=== PATIENT | male | born 1950 | race Caucasian/White ===

== ENCOUNTER → 2016-06-23 | Outpatient (CLI) | payer MEDICARE, OTHER ==
[~2016-06-23] MED LIST: ENAL20TA70 OR; TRIAMT/HCTZ PO; VANCOMYCIN 1GM/250ML D5W 250 ML IV ONE; cefTRIAXone 1GM/50ML D5W 50 ML IV ONE; cefTRIAXone 1GM/50ML D5W 50 ML IV SCH
[2016-06-23 13:00] VITALS: BP 140/78
== END | disposition home or self-care (01) ==
LOC: CHF HDHVI 12:36
PROVIDERS: ATTEND Internal Medicine Cardiovascular Disease
DX: T25.321A Burn of third degree of right foot, initial encounter (principal); B96.89 Other specified bacterial agents as the cause of diseases classified elsewhere; I10 Essential (primary) hypertension; X08.8XXA Exposure to other specified smoke, fire and flames, initial encounter; Y93.89 Activity, other specified; Y92.89 Other specified places as the place of occurrence of the external cause; Y99.8 Other external cause status
CPT/HCPCS: 96374; 96375; G0463; J0696; J3370; 96365

== ENCOUNTER → 2016-06-29 | Outpatient (CLI) | payer MEDICARE, OTHER ==
[~2016-06-29] MED LIST changes: -VANCOMYCIN 1GM/250ML D5W 250 ML IV ONE; -cefTRIAXone 1GM/50ML D5W 50 ML IV ONE; -cefTRIAXone 1GM/50ML D5W 50 ML IV SCH
== END | disposition home or self-care (01) ==
LOC: Rad HDHVI 10:57
PROVIDERS: ATTEND Internal Medicine Cardiovascular Disease
DX: M25.571 Pain in right ankle and joints of right foot (principal); I25.10 Atherosclerotic heart disease of native coronary artery without angina pectoris; I10 Essential (primary) hypertension
CPT/HCPCS: 93926

== ENCOUNTER → 2016-12-17 | Outpatient (CLI) | payer MEDICARE, OTHER ==
[~2016-12-17] MED LIST changes: +IOHEXOL 350 MG/ML 100ML IJ ONE
[2016-12-17 11:40] VITALS: BP 114/79
[2016-12-17 12:20] VITALS: BP 128/77
== END | disposition home or self-care (01) ==
LOC: Rad HDHVI 11:34
PROVIDERS: ATTEND Internal Medicine Cardiovascular Disease
DX: J98.11 Atelectasis (principal); K80.20 Calculus of gallbladder without cholecystitis without obstruction; I70.0 Atherosclerosis of aorta; M47.899 Other spondylosis, site unspecified; J44.9 Chronic obstructive pulmonary disease, unspecified
CPT/HCPCS: 71260; 82565; 96374; G0463; Q9967

== ENCOUNTER → 2018-02-03 | Outpatient (CLI) | payer MEDICARE, OTHER ==
[2018-02-03 12:22] VITALS: BP 115/90
[2018-02-03 13:32] VITALS: BP 148/107
--- NOTE | 2018-02-03 13:32 | NUR ---
CTA CHEST FOR SOB. IV TO RIGHT FOREARM. TOLERATED CT SCAN WELL. IV HYDRATION POST CT SCAN . TOLERATED WELL. IN ATTENDANCE. IV SITE DCD POST CT SCAN. SITE BENIGN. 0.9NS 300 ML X 1 HOUR Discharge Instructions See e-MAR for any mediations given with this visit. Patient education given on disease process. Patient verbalized understanding. Previous labs reviewed. Patient discharged in stable condition with after care instructions and follow up appointment.
[2018-02-03 16:33] LABS: Potassium 4.3 mmol/L (3.5-5.1)
[2018-02-03 16:35] LABS: BUN/Creatinine Ratio 13.1
== END | disposition home or self-care (01) ==
LOC: Rad HDHVI 12:13
PROVIDERS: ATTEND Internal Medicine Cardiovascular Disease
DX: J18.9 Pneumonia, unspecified organism (principal); I13.0 Hypertensive heart and chronic kidney disease with heart failure and stage 1 through stage 4 chronic kidney disease, or unspecified chronic kidney disease; I50.23 Acute on chronic systolic (congestive) heart failure; I50.32 Chronic diastolic (congestive) heart failure; E11.22 Type 2 diabetes mellitus with diabetic chronic kidney disease; N18.9 Chronic kidney disease, unspecified; I25.10 Atherosclerotic heart disease of native coronary artery without angina pectoris; J44.9 Chronic obstructive pulmonary disease, unspecified; I48.0 Paroxysmal atrial fibrillation; I71.9 Aortic aneurysm of unspecified site, without rupture; E78.00 Pure hypercholesterolemia, unspecified; E78.5 Hyperlipidemia, unspecified; I70.0 Atherosclerosis of aorta; J81.1 Chronic pulmonary edema; E66.01 Morbid (severe) obesity due to excess calories; D64.9 Anemia, unspecified; Z87.891 Personal history of nicotine dependence
CPT/HCPCS: 36415; 71260; 80048; 82565; 83880; 96360; G0463; J7040; Q9967

== ENCOUNTER → 2018-02-08 | Outpatient (CLI) | payer MEDICARE, OTHER ==
[~2018-02-08] MED LIST changes: +FUROSEMIDE 100 MG/10ML VIAL IV ONE; +FUROSEMIDE 40 MG/4 ML VIAL ONE; -IOHEXOL 350 MG/ML 100ML IJ ONE; +POTASSIUM CHL 10 Meq TABLET PO ONE; +POTASSIUM CHL 20 Meq TABLET PO ONE
[2018-02-08 09:00] VITALS: BP 141/93
--- NOTE | 2018-02-08 09:00 | NUR ---
CHF PT TO CHF CLINIC FOR MD LUJAN ORDERED IVP LASIX 80MG , POTASSIUM CHLORIDE 30MEQ PO. FOR CHF MANAGEMENT.
[2018-02-08 09:40] VITALS: BP 123/93
--- NOTE | 2018-02-08 09:40 | NUR ---
CHF Discharge Instructions See e-MAR for any mediations given with this visit. Patient education given on disease process. Patient verbalized understanding. Previous labs reviewed. Patient discharged in stable condition with after care instructions and follow up appointment. FOLLOW UP TOMORROW.
[2018-02-08 12:19] LABS: Potassium 4.1 mmol/L (3.5-5.1)
[2018-02-08 12:27] LABS: Calcium 8.3 mg/dL (8.5-10.1)
== END | disposition home or self-care (01) ==
LOC: Rad HDHVI 08:13
PROVIDERS: ATTEND Internal Medicine Cardiovascular Disease
DX: I11.0 Hypertensive heart disease with heart failure (principal); I50.42 Chronic combined systolic (congestive) and diastolic (congestive) heart failure; I70.0 Atherosclerosis of aorta; I25.10 Atherosclerotic heart disease of native coronary artery without angina pectoris; J44.9 Chronic obstructive pulmonary disease, unspecified; E78.5 Hyperlipidemia, unspecified; I48.0 Paroxysmal atrial fibrillation; E11.9 Type 2 diabetes mellitus without complications; E78.00 Pure hypercholesterolemia, unspecified; E66.01 Morbid (severe) obesity due to excess calories; Z68.32 Body mass index [BMI] 32.0-32.9, adult; Z87.891 Personal history of nicotine dependence
CPT/HCPCS: 36415; 71046; 80048; 83880; 93306; 96374; G0463; J1940

== ENCOUNTER → 2018-02-09 | Outpatient (CLI) | payer MEDICARE, OTHER ==
[~2018-02-09] MED LIST changes: +ATOR10TA PO; +ENAL5TAB PO; +ESOM40CA39 PO; +FLUT250M2 INH; +FOLI1TAB6 PO; +FURO20TA PO; -FUROSEMIDE 100 MG/10ML VIAL IV ONE; +FUROSEMIDE 40 MG/4 ML VIAL IV ONE; +GABA-339 PO; +LUBI24CA6 PO; +MAGNESIUM SULFATE 1GM/100ML 100 ML IV ONE; +METO-158 PO; +METO-281 PO; +METOPROLOL TARTRATE 25 MG TAB ONE; +METOPROLOL TARTRATE 50 MG TAB PO ONE; +POTA10TA51 PO; -POTASSIUM CHL 20 Meq TABLET PO ONE; +TEMA15CA91 PO; +TRAM50TA2 PO
--- NOTE | 2018-02-09 09:05 | NUR ---
CHF PT TO CHF CLINIC CLINIC FOR FOLLOW UP AFTER YESTERDAYS VISIT FOR IV PUSH LASIX 80MG IVP AND CHEST X RAY. DR. LUJAN CHAIRSIDE , RESULTED PT ON CHEST XRAY AND GAVE NEW ORDERS FOR TODAY. Clinic Provider Clinic Provider DR. LUJAN pt with new orders received and carried out. LASIX 40MG IVP, POTASSIUM CHLORIDE 10 MEQ PO. LAB REDRAW FOR BUN,CREAT, K,BNP. per MD order.
--- NOTE | 2018-02-09 10:04 | NUR ---
CHF LASIX 40MG IVP.
--- NOTE | 2018-02-09 10:21 | NUR ---
CHF POTASSIUM CHLORIDE 10 MEQ PO ADMINISTERED.
--- NOTE | 2018-02-09 12:00 | NUR ---
CHF DR. LUJAN ORDERED EKG DUE TO FLUCTUATING PULSE RATE. EKG SHOWED A FIB AND TACHYCARDIA, RBBB. MAG RIDER 1 GM ORDERED AND STARTED.
--- NOTE | 2018-02-09 12:09 | NUR ---
CHF CALL FROM DR. ANDERSON WHO ORDERED METOPROLOL 50MG PO. ADMINISTERED.
[2018-02-09 12:19] LABS: Potassium 4.2 mmol/L (3.5-5.1)
[2018-02-09 14:00] VITALS: BP 135/89
--- NOTE | 2018-02-09 14:00 | NUR ---
CHF PT TOLERATED THERAPY WELL. MAG HOLDER COMPLETE 1300. DR. ANDERSON GAVE NEW ORDERS DIGOXIN 0.125MCG 1 PO QD, #30. XERALTO 10MG 1 PO QD, #30 . METOPROLOL SUCCINATE 50MG 1 PO BID, #60. ALL REFILL X 3 , CALL INTO [facility]/ [address]. ORDERS CARRIED OUT. PT TO FOLLOW UP WITH DR. ANDERSON TOMORROW AT 1000, LAB REDRAW BUN, CREAT, K, BNP , STAT.PRIOR TO VISIT IN AM. IV removal IV DC'd with sterile technique, catheter fully intact. Pressure dressing applied to site. Patient tolerated procedure well. Discharged with aftercare instructions per MD. NOTE:
== END | disposition home or self-care (01) ==
LOC: CHF HDHVI 09:04
PROVIDERS: ATTEND Internal Medicine Cardiovascular Disease
DX: I13.0 Hypertensive heart and chronic kidney disease with heart failure and stage 1 through stage 4 chronic kidney disease, or unspecified chronic kidney disease (principal); E11.22 Type 2 diabetes mellitus with diabetic chronic kidney disease; I50.23 Acute on chronic systolic (congestive) heart failure; I50.32 Chronic diastolic (congestive) heart failure; N18.9 Chronic kidney disease, unspecified; I48.0 Paroxysmal atrial fibrillation; R94.4 Abnormal results of kidney function studies; R53.83 Other fatigue; E87.5 Hyperkalemia; D64.9 Anemia, unspecified; I25.10 Atherosclerotic heart disease of native coronary artery without angina pectoris; J44.9 Chronic obstructive pulmonary disease, unspecified; E78.5 Hyperlipidemia, unspecified; E66.01 Morbid (severe) obesity due to excess calories; E78.00 Pure hypercholesterolemia, unspecified; I07.1 Rheumatic tricuspid insufficiency; Z87.891 Personal history of nicotine dependence
CPT/HCPCS: 36415; 82565; 83880; 84132; 84484; 84520; 93005; 96365; 96375; G0463; J1940; J3475

== ENCOUNTER → 2018-02-10 | Outpatient (CLI) | payer MEDICARE, OTHER ==
[~2018-02-10] MED LIST changes: -MAGNESIUM SULFATE 1GM/100ML 100 ML IV ONE; +METOPROLOL SUCCINATE XL 50 MG TAB PO ONE; -METOPROLOL TARTRATE 25 MG TAB ONE; -METOPROLOL TARTRATE 50 MG TAB PO ONE; -POTASSIUM CHL 10 Meq TABLET PO ONE; +POTASSIUM CHL 20 Meq TABLET PO ONE; +SODIUM CHLORIDE 0.9% 250 ML IV ONE
--- NOTE | 2018-02-10 10:10 | NUR ---
PT. TO CHF CLINIC WITH SPOUSE, FOR EVAL. AND TX. APPARENTLY NEW RX FOR TOPROL XL 50MG WAS NOT FILLED YESTERDAY WITH OTHER NEW RX. CALL TO [facility] FOR EXPLANATION. PT. HAS NOT TAKEN ANY METOPROLOL SINCE YESTERDAY DOSE IN CLINIC. WT. DOWN 10+ LBS. IN 2 DAYS. EKG ORDERED. PT BROUGHT ALL MEDS FOR MED REC.
--- NOTE | 2018-02-10 10:37 | NUR ---
IV insertion IV access obtained, via clean sterile technique by inserting 22 gauge catheter at after attempt(s). IV secured properly. No trauma to site. Patient tolerated procedure well.LABS SENT PER MD ORDER.
--- NOTE | 2018-02-10 11:10 | NUR ---
EKG DONE SHOWING A-FIB WITH RVR. PT TOOK HIS INITIAL DOSE OF DIGOXIN YESTERDAY AT 5PM. CALL TO HOSP. PHARM. FOR TOPROL XL PER MD ORDER.
--- NOTE | 2018-02-10 11:35 | NUR ---
MEDS: PT. MEDICATED WITH TOPROL XL 50MG PO PER MD ORDER.
[2018-02-10 11:38] LABS: Basophils # (auto) 0 uL; Eosinophils # (auto) 0.1 uL; Hemoglobin 13.9 g/dL (13.5-17.5); Lymphocytes # (auto) 1.7 uL; Mean Corpuscular Volume 92.3 fL (80.0-100.0); Monocytes # (auto) 0.3 uL; Monocytes % (auto) 4.2 % (0.0-12.0)
[2018-02-10 11:41] LABS: Basophils % (auto) 0.3 % (0.0-2.0); Eosinophils % (auto) 2.4 % (0.0-7.0); Hematocrit 42.6 % (41.0-53.0); Lymphocytes % (auto) 26.9 % (10.0-50.0); Mean Corpuscular Hemoglobin 30.2 pg (28.0-32.0); Mean Corpuscular Hgb Conc. 32.7 g/dL (32.0-36.0); Neutrophils # (auto) 4.1 uL; Neutrophils % (auto) 66.2 % (37.0-80.0); Platelet Count (auto) 29 10^3/uL (140-450); Red Blood Cells 4.62 10^6/uL (4.5-5.90); White Blood Cell 6.2 10^3/uL (4.4-10.8)
[2018-02-10 11:47] LABS: Potassium 4.1 mmol/L (3.5-5.1)
--- NOTE | 2018-02-10 11:50 | NUR ---
PT. TO DR. ANDERSON'S OFFICE WITH THIS RN AND SPOUSE FOR APPT. EKG REVIEWED BY MD WITH MED. HX REVIEWED WITH MD ON LAST DOSE OF METOPROLOL, AND ALSO YESTERDAYS RECTAL BLEEDING AFTER BM. XARELTO 10MG HAS NOT BEEN TAKEN WITH DISCUSSION WITH DAUGHTER, WHO IS SALES ENGAGEMENT MANAGER IN [place]. NEW ORDERS RECEIVED AND CARRIED OUT.
--- NOTE | 2018-02-10 12:40 | NUR ---
PT. BACK TO CLINIC. .9NS STARTED AT 250/HR X [address] PREP AND CRI.
--- NOTE | 2018-02-10 13:00 | NUR ---
PT. TO AND FROM CT VIA AMBULATION. TOLERATED PROCEDURE WELL. IV RESUMED.
--- NOTE | 2018-02-10 13:10 | NUR ---
MEDS: PT. MEDICATED WITH LASIX 40MG IVP.
--- NOTE | 2018-02-10 13:15 | NUR ---
MEDS: PT. MEDICATED WITH KDUR 20 MEQ PO PER ORDER.
--- NOTE | 2018-02-10 14:30 | NUR ---
IV removal IV DC'd with sterile technique, catheter fully intact. Pressure dressing applied to site. Patient tolerated procedure well. Discharged with aftercare instructions per MD. NOTE:
[2018-02-10 14:38] VITALS: BP 132/91
--- NOTE | 2018-02-10 14:38 | NUR ---
Discharge Instructions See e-MAR for any mediations given with this visit. Patient education given on disease process. Patient verbalized understanding. Previous labs reviewed. Patient discharged in stable condition with after care instructions and follow up appointment. PT. HAS APPT. FOR TUESDAY WITH DR. ANDERSON AT 11:20 FOR POSSIBLE ADMIT IF A_FIB NOT UNDER CONTROL. PT. GAVE THIS RN PERMISSION TO CALL HIS DAUGHTER FOR UPDATE . WRITTEN MED REC. AND RX, AND ACI GIVEN TO . NO C/O AT TIME OF DISCHARGE.
== END | disposition home or self-care (01) ==
LOC: CHF HDHVI 10:10
PROVIDERS: ATTEND Internal Medicine Cardiovascular Disease
DX: I13.0 Hypertensive heart and chronic kidney disease with heart failure and stage 1 through stage 4 chronic kidney disease, or unspecified chronic kidney disease (principal); E11.22 Type 2 diabetes mellitus with diabetic chronic kidney disease; I50.42 Chronic combined systolic (congestive) and diastolic (congestive) heart failure; N18.9 Chronic kidney disease, unspecified; D63.1 Anemia in chronic kidney disease; I48.0 Paroxysmal atrial fibrillation; R94.4 Abnormal results of kidney function studies; E87.6 Hypokalemia; G89.29 Other chronic pain; G47.30 Sleep apnea, unspecified; E03.9 Hypothyroidism, unspecified; I25.10 Atherosclerotic heart disease of native coronary artery without angina pectoris; J44.9 Chronic obstructive pulmonary disease, unspecified; E66.01 Morbid (severe) obesity due to excess calories; F91.9 Conduct disorder, unspecified; F10.20 Alcohol dependence, uncomplicated; E78.5 Hyperlipidemia, unspecified; E78.00 Pure hypercholesterolemia, unspecified; Z87.891 Personal history of nicotine dependence; Z79.899 Other long term (current) drug therapy; Z87.01 Personal history of pneumonia (recurrent); Z68.35 Body mass index [BMI] 35.0-35.9, adult
CPT/HCPCS: 36415; 71260; 74177; 82565; 83880; 84132; 84520; 85025; 93005; 96361; 96374; G0463; J1940; J7030; 96360; 96375

== ENCOUNTER → 2018-02-21 | Outpatient (CLI) | payer MEDICARE, OTHER ==
[~2018-02-21] MED LIST changes: -FUROSEMIDE 40 MG/4 ML VIAL IV ONE; -FUROSEMIDE 40 MG/4 ML VIAL ONE; +KETOROLAC TROMETH 60MG/2ML VIAL IM ONE; -METOPROLOL SUCCINATE XL 50 MG TAB PO ONE; -POTASSIUM CHL 20 Meq TABLET PO ONE; -SODIUM CHLORIDE 0.9% 250 ML IV ONE
--- NOTE | 2018-02-21 09:55 | NUR ---
CHF PT TO CHF CLINIC FOR MD ANDERSON ORDERED 300ML MVI AT 250ML/HR AND LAB DRAW CMP,MG,BNP. IV insertion IV access obtained, via clean sterile technique by inserting 22 gauge catheter at after attempt(s). IV secured properly. No trauma to site. Patient tolerated procedure well.
[2018-02-21 10:56] LABS: Basophils # (auto) 0 uL; Basophils % (auto) 0.3 % (0.0-2.0); Eosinophils # (auto) 0.1 uL; Lymphocytes # (auto) 1.6 uL; Monocytes # (auto) 0.4 uL
[2018-02-21 10:58] LABS: Eosinophils % (auto) 2.2 % (0.0-7.0); Hematocrit 43.9 % (41.0-53.0); Hemoglobin 14.3 g/dL (13.5-17.5); Lymphocytes % (auto) 25.4 % (10.0-50.0); Mean Corpuscular Hemoglobin 29.7 pg (28.0-32.0); Mean Corpuscular Hgb Conc. 32.6 g/dL (32.0-36.0); Mean Corpuscular Volume 91.1 fL (80.0-100.0); Monocytes % (auto) 6.5 % (0.0-12.0); Neutrophils # (auto) 4.2 uL; Neutrophils % (auto) 65.6 % (37.0-80.0); Platelet Count (auto) 25 10^3/uL (140-450); Red Blood Cells 4.82 10^6/uL (4.5-5.90); Red Cell Distribution Width 15.2 % (11.8-14.3); White Blood Cell 6.5 10^3/uL (4.4-10.8)
[2018-02-21 11:17] LABS: Albumin 3.3 g/dL (3.4-5.0); Calcium 8.3 mg/dL (8.5-10.1); Magnesium 2.2 mg/dL (1.6-2.6); Potassium 3.8 mmol/L (3.5-5.1)
[2018-02-21 11:19] LABS: Bilirubin, Total 0.7 mg/dL (0.2-1.0); Total Protein 6.6 g/dL (6.4-8.2)
--- NOTE | 2018-02-21 12:30 | NUR ---
CHF PAIN LOW AND MID BACK 07/24 . LAB RESULTS BACK CREATININE 1.40. MD SAID 30MG IM TORADOL FOR PAIN.
[2018-02-21 12:50] VITALS: BP 141/90
--- NOTE | 2018-02-21 12:50 | NUR ---
CHF IV WAS COMPLETED 1130. IV removal IV DC'd with sterile technique, catheter fully intact. Pressure dressing applied to site. Patient tolerated procedure well. Discharged with aftercare instructions per MD. NOTE: EKG TAKEN FOR A FIB. PT DENIES ANY PAIN RELIEF 20 MIN AFTER TORADOL 30MG IM R GLUTE. PT TO FOLLOW UP WITH DR. ANDERSON TOMORROW AT 1040.
== END | disposition home or self-care (01) ==
LOC: CHF HDHVI 11:28
PROVIDERS: ATTEND Internal Medicine Cardiovascular Disease
DX: I11.0 Hypertensive heart disease with heart failure (principal); I50.23 Acute on chronic systolic (congestive) heart failure; E83.40 Disorders of magnesium metabolism, unspecified; N39.0 Urinary tract infection, site not specified; D64.9 Anemia, unspecified; I48.91 Unspecified atrial fibrillation; Z79.899 Other long term (current) drug therapy
CPT/HCPCS: 36415; 80053; 80162; 82306; 83735; 83880; 85025; J1885

== ENCOUNTER → 2018-02-22 | Outpatient (CLI) | payer MEDICARE, OTHER ==
[~2018-02-22] MED LIST changes: -KETOROLAC TROMETH 60MG/2ML VIAL IM ONE
[2018-02-22 16:52] LABS: INR 0.96 (0.9-1.15); Partial Thromboplastin Time 25.7 sec (23.78-33.04); Prothrombin Time 10.3 sec (9.27-12.13)
== END | disposition home or self-care (01) ==
LOC: Rad HDHVI 12:02
PROVIDERS: ATTEND Internal Medicine Cardiovascular Disease
DX: Z01.812 Encounter for preprocedural laboratory examination (principal); R79.1 Abnormal coagulation profile; I51.7 Cardiomegaly; I70.0 Atherosclerosis of aorta; R60.9 Edema, unspecified
CPT/HCPCS: 36415; 71046; 85610; 85730

== ENCOUNTER → 2018-03-08 | Outpatient (CLI) | payer MEDICARE, OTHER ==
[~2018-03-08] MED LIST changes: -ENAL20TA70 OR; +FUROSEMIDE 100 MG/10ML VIAL IV ONE; +FUROSEMIDE 40 MG/4 ML VIAL ONE; +POTASSIUM CHL 10 Meq TABLET PO ONE; -TRIAMT/HCTZ PO
[2018-03-08 12:32] VITALS: BP 118/76
--- NOTE | 2018-03-08 12:32 | NUR ---
PATIENT SEEN BY DR ANDERSON, VERBAL ORDERS RECEIVED ENTERED.
--- NOTE | 2018-03-08 13:05 | NUR ---
PATIENT AND SPOUSE EDUCATED TO STOP TAKING ENALAPRIL DOCUMENTED BY DR ANDERSON, ORDER HIGHLIGHTED ON PAPERWORK FOR PATIENT AND PATIENT SPOUSE, BOTH VERBALIZED UNDERSTANDING.
[2018-03-08 13:09] VITALS: BP 100/76
--- NOTE | 2018-03-08 13:09 | NUR ---
CHF CLINIC Discharge Instructions See e-MAR for any mediations given with this visit. Patient education given on disease process. Patient verbalized understanding. Previous labs reviewed. Patient discharged in stable condition with after care instructions and follow up appointment. NOTE LASIX IVP ADMIN BY ELIZABETH ZHAO POTASSIUM ADMIN BY ELIZABETH ZHAO LABS DRAWN BY ELIZABETH ZHAO
[2018-03-08 16:31] LABS: Anion Gap 5 (5-15); Blood Urea Nitrogen 12 mg/dL (7-18); Calcium 8.7 mg/dL (8.5-10.1); Carbon Dioxide 29 mmol/L (21-32); Chloride 104 mmol/L (98-107); Glucose 118 mg/dL (74-106); Potassium 3.8 mmol/L (3.5-5.1); Sodium 138 mmol/L (136-145)
[2018-03-08 16:34] LABS: BUN/Creatinine Ratio 9.9; GFR African American > 60 mL/min; GFR Non-African American > 60 mL/min
== END | disposition home or self-care (01) ==
LOC: CHF HDHVI 12:24
PROVIDERS: ATTEND Internal Medicine Cardiovascular Disease
DX: I13.0 Hypertensive heart and chronic kidney disease with heart failure and stage 1 through stage 4 chronic kidney disease, or unspecified chronic kidney disease (principal); I50.42 Chronic combined systolic (congestive) and diastolic (congestive) heart failure; E11.22 Type 2 diabetes mellitus with diabetic chronic kidney disease; N18.9 Chronic kidney disease, unspecified; I25.10 Atherosclerotic heart disease of native coronary artery without angina pectoris; J44.9 Chronic obstructive pulmonary disease, unspecified; I70.0 Atherosclerosis of aorta; E03.9 Hypothyroidism, unspecified; I48.0 Paroxysmal atrial fibrillation; I42.0 Dilated cardiomyopathy; E78.00 Pure hypercholesterolemia, unspecified; E66.01 Morbid (severe) obesity due to excess calories; E78.5 Hyperlipidemia, unspecified; G47.30 Sleep apnea, unspecified; G89.29 Other chronic pain; F10.21 Alcohol dependence, in remission; Z79.899 Other long term (current) drug therapy; Z87.891 Personal history of nicotine dependence
CPT/HCPCS: 36415; 80048; 83880; 96374; G0463; J1940

== ENCOUNTER → 2018-03-10 | Outpatient (CLI) | payer MEDICARE, OTHER ==
[~2018-03-10] MED LIST changes: -FUROSEMIDE 100 MG/10ML VIAL IV ONE; -FUROSEMIDE 40 MG/4 ML VIAL ONE; -POTASSIUM CHL 10 Meq TABLET PO ONE
[2018-03-10 12:10] LABS: Basophils # (auto) 0 uL; Hemoglobin 14.6 g/dL (13.5-17.5); Lymphocytes # (auto) 3.1 uL; Platelet Count (auto) 29 10^3/uL (140-450); White Blood Cell 10.9 10^3/uL (4.4-10.8)
[2018-03-10 12:12] LABS: Basophils % (auto) 0.3 % (0.0-2.0); Eosinophils # (auto) 0.1 uL; Eosinophils % (auto) 1.3 % (0.0-7.0); Hematocrit 43.8 % (41.0-53.0); Lymphocytes % (auto) 28.1 % (10.0-50.0); Mean Corpuscular Hemoglobin 29.4 pg (28.0-32.0); Mean Corpuscular Hgb Conc. 33.3 g/dL (32.0-36.0); Mean Corpuscular Volume 88.3 fL (80.0-100.0); Monocytes # (auto) 0.6 uL; Monocytes % (auto) 5.6 % (0.0-12.0); Neutrophils % (auto) 64.7 % (37.0-80.0); Nucleated Red Blood Cells % 0.1 %; Red Blood Cells 4.96 10^6/uL (4.5-5.90); Red Cell Distribution Width 15.9 % (11.8-14.3)
[2018-03-10 12:22] LABS: Chloride 103 mmol/L (98-107); Potassium 3.4 mmol/L (3.5-5.1); Sodium 139 mmol/L (136-145)
[2018-03-10 12:34] LABS: Alanine Aminotransferase 22 U/L (16-61); Alkaline Phosphatase 74 U/L (45-117); Anion Gap 5 (5-15); Aspartate Aminotransferase 17 U/L (15-37); BUN/Creatinine Ratio 10.6; Bilirubin, Total 0.8 mg/dL (0.2-1.0); Blood Urea Nitrogen 15 mg/dL (7-18); Calcium 8.4 mg/dL (8.5-10.1); Carbon Dioxide 31 mmol/L (21-32); GFR Non-African American 53 mL/min; Glucose 108 mg/dL (74-106); Total Protein 6.4 g/dL (6.4-8.2)
[2018-03-10 12:36] LABS: GFR African American > 60 mL/min
== END | disposition home or self-care (01) ==
LOC: LAB 10:44
PROVIDERS: ATTEND Internal Medicine Cardiovascular Disease
DX: I48.91 Unspecified atrial fibrillation (principal); E03.9 Hypothyroidism, unspecified; D64.9 Anemia, unspecified
CPT/HCPCS: 36415; 80053; 84439; 84443; 85025

== ENCOUNTER → 2018-03-14 | Outpatient (CLI) | payer MEDICARE, OTHER ==
[2018-03-14 12:07] LABS: Basophils # (auto) 0 uL; Hematocrit 44.3 % (41.0-53.0); Lymphocytes % (auto) 25.3 % (10.0-50.0); Monocytes # (auto) 0.5 uL; Monocytes % (auto) 4.6 % (0.0-12.0)
[2018-03-14 12:10] LABS: Basophils % (auto) 0.2 % (0.0-2.0); Eosinophils # (auto) 0.3 uL; Eosinophils % (auto) 2.7 % (0.0-7.0); Hemoglobin 14.5 g/dL (13.5-17.5); Lymphocytes # (auto) 2.6 uL; Mean Corpuscular Hemoglobin 29.1 pg (28.0-32.0); Mean Corpuscular Hgb Conc. 32.8 g/dL (32.0-36.0); Mean Corpuscular Volume 88.8 fL (80.0-100.0); Neutrophils % (auto) 67.2 % (37.0-80.0); Nucleated Red Blood Cells % 0.1 %; Red Blood Cells 4.98 10^6/uL (4.5-5.90); Red Cell Distribution Width 15.9 % (11.8-14.3); White Blood Cell 10.4 10^3/uL (4.4-10.8)
[2018-03-14 12:36] LABS: Platelet Count (auto) 73 10^3/uL (140-450)
== END | disposition home or self-care (01) ==
LOC: LAB 10:40
PROVIDERS: ATTEND Internal Medicine Cardiovascular Disease
DX: D64.9 Anemia, unspecified (principal)
CPT/HCPCS: 36415; 85025

== ENCOUNTER → 2018-04-21 | Outpatient (CLI) | payer MEDICARE, OTHER ==
[2018-04-21 16:29] LABS: Albumin 3.1 g/dL (3.4-5.0); Calcium 8.6 mg/dL (8.5-10.1); Potassium 3.9 mmol/L (3.5-5.1)
[2018-04-21 16:32] LABS: Bilirubin, Total 0.5 mg/dL (0.2-1.0); Total Protein 6.8 g/dL (6.4-8.2)
== END | disposition home or self-care (01) ==
LOC: LAB 13:08
PROVIDERS: ATTEND Internal Medicine Cardiovascular Disease
DX: I11.0 Hypertensive heart disease with heart failure (principal); I50.23 Acute on chronic systolic (congestive) heart failure; J44.9 Chronic obstructive pulmonary disease, unspecified
CPT/HCPCS: 36415; 80053; 83880

== ENCOUNTER → 2018-04-28 | Outpatient (CLI) | payer MEDICARE, OTHER ==
[2018-04-28 16:13] LABS: BUN/Creatinine Ratio 9.4; Potassium 3.8 mmol/L (3.5-5.1)
== END | disposition home or self-care (01) ==
LOC: LAB 11:18
PROVIDERS: ATTEND Internal Medicine Cardiovascular Disease
DX: I48.91 Unspecified atrial fibrillation (principal); I11.0 Hypertensive heart disease with heart failure; I50.33 Acute on chronic diastolic (congestive) heart failure
CPT/HCPCS: 36415; 80048; 83880

== ENCOUNTER → 2018-05-03 | Outpatient (CLI) | payer MEDICARE, OTHER ==
[~2018-05-03] MED LIST changes: +FUROSEMIDE 100 MG/10ML VIAL IV ONE; +FUROSEMIDE INJECTION 10 ML ONE; +POTASSIUM CHL 20 Meq TABLET PO ONE
[2018-05-03 13:10] VITALS: BP 102/70
[2018-05-03 13:30] VITALS: BP 109/68
--- NOTE | 2018-05-03 13:30 | NUR ---
CHF CLINIC Discharge Instructions See e-MAR for any mediations given with this visit. Patient education given on disease process. Patient verbalized understanding. Previous labs reviewed. Patient discharged in stable condition with after care instructions and follow up appointment NEXT TUESDAY. NOTE LASIX IVP ADMIN BY ELIZABETH ZHAO POTASSIUM PO ADMIN BY ELIZABETH ZHAO
== END | disposition home or self-care (01) ==
LOC: LAB 11:15
PROVIDERS: ATTEND Internal Medicine Cardiovascular Disease
DX: I11.0 Hypertensive heart disease with heart failure (principal); I50.42 Chronic combined systolic (congestive) and diastolic (congestive) heart failure; R91.8 Other nonspecific abnormal finding of lung field; R70.0 Elevated erythrocyte sedimentation rate; J44.9 Chronic obstructive pulmonary disease, unspecified; I48.91 Unspecified atrial fibrillation
CPT/HCPCS: 86038; 86635; 87070; 87077; 87186; 87205; 96374; G0463; J1940

== ENCOUNTER → 2018-05-09 | Outpatient (CLI) | payer MEDICARE, OTHER ==
[~2018-05-09] MED LIST changes: +POTASSIUM CHL 10 Meq TABLET PO ONE
[2018-05-09 11:45] VITALS: BP 98/67
--- NOTE | 2018-05-09 11:45 | NUR ---
CHF PT ARRIVED AT THE CHF CLINIC FOR WEEKLY LASIX IVP , PT ALERT ORIENTED 0 DISTRESS, V/S OBTAINED
[2018-05-09 12:17] VITALS: BP 100/57
--- NOTE | 2018-05-09 12:17 | NUR ---
Discharge Instructions See e-MAR for any mediations given with this visit. Patient education given on disease process. Patient verbalized understanding. Previous labs reviewed. Patient discharged in stable condition with after care instructions and follow up appointment. MEDICATIONS LASIX 100MG IVP X 1 POTASSIUM 40 MEQ PO X 1
== END | disposition home or self-care (01) ==
LOC: CHF HDHVI 11:45
PROVIDERS: ATTEND Internal Medicine Cardiovascular Disease
DX: I11.0 Hypertensive heart disease with heart failure (principal); I50.42 Chronic combined systolic (congestive) and diastolic (congestive) heart failure; J44.9 Chronic obstructive pulmonary disease, unspecified; I48.91 Unspecified atrial fibrillation
CPT/HCPCS: 96374; G0463; J1940

== ENCOUNTER → 2018-05-17 | Outpatient (CLI) | payer MEDICARE, OTHER ==
[~2018-05-17] MED LIST changes: -FUROSEMIDE 100 MG/10ML VIAL IV ONE; -FUROSEMIDE INJECTION 10 ML ONE; -POTASSIUM CHL 10 Meq TABLET PO ONE; -POTASSIUM CHL 20 Meq TABLET PO ONE
[2018-05-17 16:17] LABS: Calcium 8.9 mg/dL (8.5-10.1); Potassium 3.8 mmol/L (3.5-5.1)
== END | disposition home or self-care (01) ==
LOC: LAB 11:27
PROVIDERS: ATTEND Internal Medicine Cardiovascular Disease
DX: I11.0 Hypertensive heart disease with heart failure (principal); I50.30 Unspecified diastolic (congestive) heart failure; J44.9 Chronic obstructive pulmonary disease, unspecified
CPT/HCPCS: 36415; 80048

== ENCOUNTER → 2018-06-01 | Outpatient (CLI) | payer MEDICARE, OTHER ==
[~2018-06-01] VITALS: Ht 30.5 cm; Wt 0.5 kg
[~2018-06-01] MED LIST changes: +FUROSEMIDE 40 MG/4 ML VIAL IV ONE; +FUROSEMIDE 40 MG/4 ML VIAL ONE; +POTASSIUM CHL 20 Meq TABLET PO ONE
[2018-06-01 09:37] VITALS: BP 141/90
[2018-06-01 10:10] VITALS: BP 134/84
--- NOTE | 2018-06-01 10:10 | NUR ---
IN TO CLINIC FOR CONCERNS OVER BRUISING RIGHT GROIN. PT REPORTS HAVING A HEART CATH AT [facility] 10 DAYS AGO. PT REPORTS THAT THE BRUISING IS 'BAD". UPON ASSESSMENT, NOTED TO HAVE DARK ECCHYMOTIC AREA ON PUBIC AREA EXTENDING TO RIGHT GROIN. COVERS AREA OF APPROXIMATE 2/3 SIZE OF PIECE OF PAPER( 8X 10). ALL TISSUES SOFT TO PALPATION. NO ERYTHEMA. REINFORCED THAT BRUISING IS NORMAL AND ECCHYMOSIS WILL TAKE A FEW MORE WEEKS TO RESOLVE. PT VERBALIZED UNDERSTANDING. HAS LEFT LEG SWELLING, LEFT >RIGHT. CLINIC PROVIDER CONSULTED AND ORDERS RECIEVED. MEDICATED PER ORDER. Discharge Instructions See e-MAR for any mediations given with this visit. Patient education given on disease process. Patient verbalized understanding. Previous labs reviewed. Patient discharged in stable condition with after care instructions. MEDICATION ADMINISTRATION LASIX 60 MG IVP AT 1000 POTASSIUM 20 MEQ PO AT 1005
== END | disposition home or self-care (01) ==
LOC: CHF HDHVI 09:50
PROVIDERS: ATTEND Internal Medicine Cardiovascular Disease
DX: I11.0 Hypertensive heart disease with heart failure (principal); I50.42 Chronic combined systolic (congestive) and diastolic (congestive) heart failure; J44.9 Chronic obstructive pulmonary disease, unspecified; I48.91 Unspecified atrial fibrillation; M79.81 Nontraumatic hematoma of soft tissue
CPT/HCPCS: 96374; G0463; J1940

== ENCOUNTER → 2018-07-24 | Outpatient (CLI) | payer MEDICARE, OTHER ==
[~2018-07-24] MED LIST changes: +FURO1TAB33 PO; -FURO20TA PO; -FUROSEMIDE 40 MG/4 ML VIAL IV ONE; -FUROSEMIDE 40 MG/4 ML VIAL ONE; -POTASSIUM CHL 20 Meq TABLET PO ONE
[2018-07-24 16:16] LABS: BUN/Creatinine Ratio 13.2; Calcium 9.6 mg/dL (8.5-10.1); Potassium 4.1 mmol/L (3.5-5.1)
[2018-07-24 16:18] LABS: Bilirubin, Total 0.7 mg/dL (0.2-1.0); Total Protein 7.9 g/dL (6.4-8.2)
[2018-07-24 16:51] LABS: Basophils # (auto) 0 uL; Eosinophils # (auto) 0.2 uL; Lymphocytes # (auto) 2.7 uL; Red Blood Cells 5.11 10^6/uL (4.5-5.90); White Blood Cell 8.1 10^3/uL (4.4-10.8)
[2018-07-24 16:53] LABS: Basophils % (auto) 0.2 % (0.0-2.0); Eosinophils % (auto) 3.1 % (0.0-7.0); Hemoglobin 14.7 g/dL (13.5-17.5); Lymphocytes % (auto) 33.8 % (10.0-50.0); Mean Corpuscular Hemoglobin 28.9 pg (28.0-32.0); Mean Corpuscular Hgb Conc. 32.7 g/dL (32.0-36.0); Mean Corpuscular Volume 88.1 fL (80.0-100.0); Monocytes # (auto) 0.4 uL; Monocytes % (auto) 5.5 % (0.0-12.0); Neutrophils # (auto) 4.7 uL; Neutrophils % (auto) 57.4 % (37.0-80.0); Nucleated Red Blood Cells % 0.4 %; Red Cell Distribution Width 14.9 % (11.8-14.3)
[2018-07-24 17:28] LABS: Platelet Count (auto) 14 10^3/uL (140-450)
== END | disposition home or self-care (01) ==
LOC: LAB 13:13
PROVIDERS: ATTEND Internal Medicine Cardiovascular Disease
DX: D64.9 Anemia, unspecified (principal); I10 Essential (primary) hypertension; Z79.899 Other long term (current) drug therapy
CPT/HCPCS: 36415; 80053; 83036; 85025

== ENCOUNTER → 2018-10-20 | Outpatient (CLI) | payer MEDICARE, OTHER ==
[2018-10-20 13:38] LABS: Eosinophils # (auto) 0.3 uL; Eosinophils % (auto) 3.5 % (0.0-7.0); Lymphocytes # (auto) 2.3 uL; Monocytes # (auto) 0.4 uL; Red Cell Distribution Width 15.7 % (11.8-14.3); White Blood Cell 7.9 10^3/uL (4.4-10.8)
[2018-10-20 13:39] LABS: Basophils # (auto) 0.1 uL; Hematocrit 42.7 % (41.0-53.0); Hemoglobin 14.4 g/dL (13.5-17.5); Lymphocytes % (auto) 29.3 % (10.0-50.0); Mean Corpuscular Hemoglobin 29.5 pg (28.0-32.0); Mean Corpuscular Hgb Conc. 33.6 g/dL (32.0-36.0); Mean Corpuscular Volume 87.9 fL (80.0-100.0); Monocytes % (auto) 5.2 % (0.0-12.0); Neutrophils # (auto) 4.8 uL; Nucleated Red Blood Cells % 0.2 %; Red Blood Cells 4.86 10^6/uL (4.5-5.90)
[2018-10-20 14:29] LABS: Platelet Count (auto) 90 10^3/uL (140-450)
== END | disposition home or self-care (01) ==
LOC: LAB 09:29
PROVIDERS: ATTEND Internal Medicine Cardiovascular Disease
DX: D64.9 Anemia, unspecified (principal); I11.0 Hypertensive heart disease with heart failure; I50.9 Heart failure, unspecified
CPT/HCPCS: 36415; 85025

== ENCOUNTER 2019-04-28 17:54 | Inpatient (IN) | payer MEDICARE, OTHER ==
[~2019-04-28] VITALS: Ht 182.9 cm; Wt 105.4 kg
[~2019-04-28 17:54] MED LIST changes: -ENAL5TAB PO; +ENAL5TAB10 PO
[2019-04-28 19:10] LABS: Basophils # (auto) 0 10 ^3/uL (0-0.2); Eosinophils # (auto) 0 10 ^3/uL (0-0.8); Hemoglobin 11.4 g/dL (13.5-17.5); Lymphocytes # (auto) 0.5 10 ^3/uL (0.4-5.4); Mean Corpuscular Hgb Conc. 34.1 g/dL (32.0-36.0); Monocytes # (auto) 0.3 10 ^3/uL (0-1.3); Neutrophils % (auto) 81.3 % (37.0-80.0)
[2019-04-28 19:12] LABS: Basophils % (auto) 0.2 % (0.0-2.0); Eosinophils % (auto) 0.4 % (0.0-7.0); Hematocrit 33.5 % (41.0-53.0); Lymphocytes % (auto) 11.7 % (10.0-50.0); Mean Corpuscular Hemoglobin 28.8 pg (28.0-32.0); Mean Corpuscular Volume 84.6 fL (80.0-100.0); Monocytes % (auto) 6.4 % (0.0-12.0); Neutrophils # (auto) 3.4 10 ^3/uL (1.6-8.6); Red Blood Cells 3.95 10^6/uL (4.5-5.90); White Blood Cell 4.2 10^3/uL (4.4-10.8)
[2019-04-28 19:32] LABS: Albumin 2.7 g/dL (3.4-5.0); Anion Gap 9 (5-15); Blood Urea Nitrogen 23 mg/dL (7-18); Carbon Dioxide 22 mmol/L (21-32); Chloride 105 mmol/L (98-107); Glucose 132 mg/dL (74-106); Potassium 3.4 mmol/L (3.5-5.1); Sodium 136 mmol/L (136-145)
[2019-04-28 19:39] LABS: Alanine Aminotransferase 108 U/L (16-61); Alkaline Phosphatase 145 U/L (45-117); Aspartate Aminotransferase 35 U/L (15-37); BUN/Creatinine Ratio 12.3; Bilirubin, Total 1.1 mg/dL (0.2-1.0); GFR African American 46 mL/min; GFR Non-African American 38 mL/min; Total Protein 6.2 g/dL (6.4-8.2)
[2019-04-28] MEDS ORDERED: levoFLOXacin 500MG 100 ML IV ONE (20:00)
[2019-04-28] MEDS ORDERED: SODIUM CHLORIDE 0.9% 1,000 ML IV ONE ×2 (20:00→22:15)
[2019-04-28] MEDS ORDERED: KETOROLAC TROMETH 15 mg/ml 1ML VL IV ONE (20:00)
[2019-04-28 20:12] LABS: Platelet Count (auto) 42 10^3/uL (140-450)
[2019-04-29] MEDS ORDERED: NITROGLYCERIN 0.4 MG SL TAB SL PRN (08:45)
[2019-04-29] MEDS ORDERED: ONDANSETRON HCL 4 MG/2 ML VIAL IV PRN (08:45)
[2019-04-29] MEDS ORDERED: SODIUM CHLORIDE 0.9% 1,000 ML IV SCH (08:45)
[2019-04-29] MEDS ORDERED: MORPHINE SULF INJ 2 MG/ML SYRINGE 1ML IV PRN ×2 (08:45)
[2019-04-29] MEDS ORDERED: DOCUSATE SOD 100 MG CAP PO PRN (08:45)
[2019-04-29] MEDS ORDERED: DEXTROSE (50%) 50ML SYRG IV PRN (08:45)
[2019-04-29] MEDS ORDERED: ACETAMINOPHEN 500 MG TAB PO PRN (08:45)
[2019-04-29 09:42] VITALS: BP 125/85
[2019-04-29] MEDS: levoFLOXacin 500MG 100 ML IV SCH (10:33)
[2019-04-29] MEDS: METOPROLOL SUCCINATE XL 50 MG TAB PO SCH (10:44)
[2019-04-29] MEDS: APIXABAN 5 MG TAB PO SCH ×2 (10:46→21:13)
[2019-04-29] MEDS: InsuLIN REG 1unit/0.01ml Soln (100units/ml) SC SCH ×3 (11:30→21:18)
[2019-04-29] MEDS: ACCU-CHEK COMFORT CURVE STRIP VI SCH ×3 (11:35→21:14)
[2019-04-29] MEDS: LEVALBUTEROL HCL 1.25 MG/3 ML NEB NEB SCH ×2 (11:43→19:51)
[2019-04-29] MEDS: IPRATROPIUM BROM 0.5 MG/2.5ML INH SOL NEB SCH ×2 (11:43→19:51)
[2019-04-29 14:50] VITALS: BP 125/76
--- NOTE | 2019-04-29 15:46 | NUR ---
MATT ANDERSON INFORMED OF PATIENT HAVING RUNS OF VTACH. AWAITING CALL BACK.
--- NOTE | 2019-04-29 15:57 | NUR ---
RECIEVED CALL BACK FROM [facility] REGARDING PATIENT HAVING RUNS OF VTACH. STATED TO DO "NOTHING".
[2019-04-29 16:45] VITALS: BP 135/71
--- NOTE | 2019-04-29 18:47 | NUR ---
REGARDING REDDISH STOOL AND FREQUENT V TACH EPISODES: MATT ANDERSON REGARDING PATIENTS FREQUENT EPISODES OF VENTRICULAR TACHYCARDIA AGAIN. ALSO PATIENT HAD AN EPISODE OF REDDISH COLORED STOOL. AWAITING CALL BACK.
[2019-04-29] MEDS ORDERED: FUROSEMIDE 40 MG/4 ML VIAL IV ONE (19:15)
--- NOTE | 2019-04-29 19:30 | NUR ---
OPENING NOTE REPORT RECEIVED FROM DAY SHIFT RN PATIENT IS A/OX4 RESTING IN BED, NO S/S OF DISTRESS AT THIS TIME. PHYSICAL ASSESSMENT DONE-SEE INTERVENTIONS. POC DISCUSSED WITH PATIENT AND ALL QUESTIONS ANSWERED. WILL MONITOR CLOSELY. CALL LIGHT WITHIN REACH.
--- NOTE | 2019-04-29 20:35 | NUR ---
RUNS OF VTACH PATIENT HAVING RUNS OF VTACH. PATIENT COMPLETELY ASYMPTOMATIC, VITALS STABLE. ALREADY AWARE WITH NO NEW ORDERS. WILL CONTINUE TO MONITOR
[2019-04-29] MEDS: HYDROcodone-ACET 5/325MG TAB PO PRN (21:14)
--- NOTE | 2019-04-29 21:14 | NUR ---
PAIN PATIENT C/O 6/10 PAIN TO HIS FEET PATIENT MEDICATED WITH NORCO WILL REASSESS IN ONE HOUR
[2019-04-29 21:33] LABS: Urine WBC None Seen /hpf (0 - 3)
[2019-04-29 21:38] LABS: Urine Bacteria FEW /hpf (None Seen); Urine Blood Negative /uL (Negative); Urine Specific Gravity 1.005 (1.001-1.035)
[2019-04-29 22:00] VITALS: BP 124/73
--- NOTE | 2019-04-29 22:14 | NUR ---
PAIN REASSESSMENT PATIENT SLEEPING AT THIS TIME. NO SIGNS OF PAIN OR DISCOMFORT
[2019-04-30 05:00] VITALS: BP 150/90
--- NOTE | 2019-04-30 05:10 | NUR ---
PAGED RE: PATIENT HAVING MORE FREQUENT RUNS OF VTACH PATIENT STILL REMAINS ASYMPTOMATIC A/OX4, VITALS STABLE. WILL WAIT FOR MD TO CALL BACK
[2019-04-30] MEDS: InsuLIN REG 1unit/0.01ml Soln (100units/ml) SC SCH ×4 (06:00→23:14)
[2019-04-30] MEDS: ACCU-CHEK COMFORT CURVE STRIP VI SCH ×4 (06:01→23:14)
[2019-04-30] MEDS: IPRATROPIUM BROM 0.5 MG/2.5ML INH SOL NEB SCH ×3 (06:14→19:57)
[2019-04-30] MEDS: LEVALBUTEROL HCL 1.25 MG/3 ML NEB NEB SCH ×3 (06:14→19:57)
[2019-04-30 06:32] LABS: BUN/Creatinine Ratio 13.3; Potassium 3.1 mmol/L (3.5-5.1)
--- NOTE | 2019-04-30 07:13 | NUR ---
CLOSING PATIENT RESTING COMFORTABLY IN BED. NO S/S OF DISTRESS NO CALL BACK FROM . ENDORSED CARE TO DAYSLUCIO AVALOS
[2019-04-30 08:13] LABS: Basophils # (auto) 0 10 ^3/uL (0-0.2); Basophils % (auto) 0.5 % (0.0-2.0); Eosinophils # (auto) 0.1 10 ^3/uL (0-0.8); Eosinophils % (auto) 2.8 % (0.0-7.0); Hematocrit 32.3 % (41.0-53.0); Hemoglobin 10.9 g/dL (13.5-17.5); Lymphocytes # (auto) 0.7 10 ^3/uL (0.4-5.4); Lymphocytes % (auto) 31.1 % (10.0-50.0); Mean Corpuscular Hemoglobin 28.3 pg (28.0-32.0); Mean Corpuscular Hgb Conc. 33.8 g/dL (32.0-36.0); Mean Corpuscular Volume 83.7 fL (80.0-100.0); Monocytes # (auto) 0.3 10 ^3/uL (0-1.3); Monocytes % (auto) 11.7 % (0.0-12.0); Neutrophils # (auto) 1.3 10 ^3/uL (1.6-8.6); Neutrophils % (auto) 53.9 % (37.0-80.0); Nucleated Red Blood Cells % 0.2 %; Platelet Count (auto) 41 10^3/uL (140-450); Red Blood Cells 3.86 10^6/uL (4.5-5.90); Red Cell Distribution Width 15.5 % (11.8-14.3); White Blood Cell 2.4 10^3/uL (4.4-10.8)
[2019-04-30 09:00] VITALS: BP 133/77
[2019-04-30] MEDS: levoFLOXacin 500MG 100 ML IV SCH (09:23)
[2019-04-30] MEDS: APIXABAN 5 MG TAB PO SCH ×2 (09:24→23:03)
[2019-04-30] MEDS: HYDROcodone-ACET 5/325MG TAB PO PRN ×2 (09:24→23:03)
[2019-04-30] MEDS: METOPROLOL SUCCINATE XL 50 MG TAB PO SCH (09:24)
[2019-04-30] MEDS ORDERED: FUROSEMIDE 40 MG/4 ML VIAL IV SCH (10:00)
--- NOTE | 2019-04-30 10:00 | NUR ---
DR FRAGOSO AT BED SIDE DISCUSSING POC. PATIENT VERBALIZES UNDERSTANDING.
[2019-04-30] MEDS ORDERED: POTASSIUM CHL 20 Meq TABLET PO ONE (11:00)
[2019-04-30] MEDS ORDERED: FAMOTIDINE 20 MG TAB PO ONE (11:00)
[2019-04-30] MEDS ORDERED: FOLIC ACID 1 MG TAB PO ONE (11:00)
--- NOTE | 2019-04-30 11:57 | NUR ---
1200 MED NEB NOT ADMINISTERED. PT NOT IN ROOM AT PROCEDURE. RN BAILEY AWARE OF NON ADMINISTERED MED AND ALSO IF PT DEVELOPS RESPIRATORY DISTRESS TO CALL RT. WILL CONTINUE TO MONITOR.
[2019-04-30 13:00] VITALS: BP 129/86
[2019-04-30] MEDS: metroNIDAZOLE 500MG/100ML 100 ML IV SCH ×2 (14:00→23:03)
[2019-04-30 17:00] VITALS: BP 130/76
--- NOTE | 2019-04-30 19:44 | NUR ---
Opening Shift Note Assumed care of patient, awake and alert. No S/S of distress/SOB or pain. t 98.2 0/10 paim, 125/52 b/p, 84 heart rate, o2 saturation 95% via room air. Instructed patient and on POC and to call for assist PRN, will continue to monitor for changes Q1hr and PRN. bed in low position and call light within reach.
[2019-04-30 20:00] VITALS: BP 125/52
[2019-04-30 22:00] VITALS: BP 116/69
--- NOTE | 2019-04-30 23:03 | NUR ---
PAIN PATIENT REPORTS PAIN 5/10 TO BACK NON RADIATING. WILL MEDICATE PER PROTOCOL.
[2019-04-30] MEDS: METOPROLOL TARTRATE 50 MG TAB PO SCH (23:04)
--- NOTE | 2019-05-01 00:03 | NUR ---
PAIN REASSESSMENT PATIENT NOW RATES PAIN AT 3/10, STATES IT IS AT A TOLERABLE LEVEL
[2019-05-01 05:00] VITALS: BP 131/87
[2019-05-01] MEDS: LEVALBUTEROL HCL 1.25 MG/3 ML NEB NEB SCH ×3 (05:49→18:16)
[2019-05-01] MEDS: IPRATROPIUM BROM 0.5 MG/2.5ML INH SOL NEB SCH ×3 (05:49→18:16)
[2019-05-01 05:52] LABS: Basophils # (auto) 0 10 ^3/uL (0-0.2); Nucleated Red Blood Cells % 0.1 %
[2019-05-01] MEDS: metroNIDAZOLE 500MG/100ML 100 ML IV SCH ×3 (05:52→21:34)
[2019-05-01 05:56] LABS: Basophils % (auto) 0.4 % (0.0-2.0); Eosinophils # (auto) 0.1 10 ^3/uL (0-0.8); Eosinophils % (auto) 3.6 % (0.0-7.0); Hematocrit 34.9 % (41.0-53.0); Hemoglobin 11.6 g/dL (13.5-17.5); Lymphocytes # (auto) 1.5 10 ^3/uL (0.4-5.4); Lymphocytes % (auto) 36.1 % (10.0-50.0); Mean Corpuscular Hemoglobin 28.1 pg (28.0-32.0); Mean Corpuscular Hgb Conc. 33.3 g/dL (32.0-36.0); Mean Corpuscular Volume 84.3 fL (80.0-100.0); Monocytes # (auto) 0.5 10 ^3/uL (0-1.3); Neutrophils % (auto) 48.9 % (37.0-80.0); Red Blood Cells 4.14 10^6/uL (4.5-5.90); White Blood Cell 4.1 10^3/uL (4.4-10.8)
[2019-05-01 06:05] LABS: INR 1.03 (0.9-1.15); Partial Thromboplastin Time 30.7 sec (23.64-32.05)
[2019-05-01 06:15] LABS: Albumin 2.6 g/dL (3.4-5.0); Calcium 8.9 mg/dL (8.5-10.1); Potassium 3.4 mmol/L (3.5-5.1)
[2019-05-01 06:28] LABS: Bilirubin, Total 0.5 mg/dL (0.2-1.0); Total Protein 6.6 g/dL (6.4-8.2)
[2019-05-01] MEDS: InsuLIN REG 1unit/0.01ml Soln (100units/ml) SC SCH (06:32)
[2019-05-01] MEDS: ACCU-CHEK COMFORT CURVE STRIP VI SCH (06:32)
[2019-05-01 06:36] LABS: Platelet Count (auto) 44 10^3/uL (140-450)
--- NOTE | 2019-05-01 06:41 | NUR ---
patient rounds patient is in bed watching tv denies sob distress or pain
--- NOTE | 2019-05-01 07:15 | NUR ---
REPORT GIVEN TO DAYSHIFT RN. PATIENT DENIES SOB DISTRESS OR PAIN
[2019-05-01 07:19] LABS: BUN/Creatinine Ratio 14.1
--- NOTE | 2019-05-01 08:00 | NUR ---
OPENING SHIFT NOTE: PATIENT AWAKE A/OX4. C/O FOOT "BURNING" SENSATION, "COMES AND GOES." PATIENT ABLE TO MOVE ALL EXTREMITIES, WARM DRY, SKIN INTACT. RESPIRATIONS EVEN AND UNLABORED, LUNG SOUNDS CLEAR. UPDATED ON PLAN OF CARE. CALL LIGHT WITHIN REACH, WILL CONTINUE TO MONITOR.
[2019-05-01 08:53] VITALS: BP 141/89
[2019-05-01] MEDS: levoFLOXacin 500MG 100 ML IV SCH (09:58)
[2019-05-01] MEDS: FAMOTIDINE 20 MG TAB PO SCH (09:58)
[2019-05-01] MEDS: FOLIC ACID 1 MG TAB PO SCH (09:58)
[2019-05-01] MEDS: METOPROLOL TARTRATE 50 MG TAB PO SCH ×2 (09:58→21:36)
[2019-05-01] MEDS: APIXABAN 5 MG TAB PO SCH ×2 (09:58→21:35)
[2019-05-01] MEDS ORDERED: POTASSIUM CHL 20 Meq TABLET PO ONE (10:15)
--- NOTE | 2019-05-01 10:57 | NUR ---
MEDICATION REACTION: PATIENT REPORTING MEDICATION REACTION TO LEVAQUIN IVPB. PATIENT SWEATING AND SAYS, "THIS MEDICATION IS NOT RIGHT, MY ARMS THEY FEEL LIKE THEY ARE BURNING." DR. FRAGOSO MADE AWARE, LEVAQUIN DC'D AND BENADRYL GIVEN ORDERED.
[2019-05-01] MEDS ORDERED: diphenhdrAMINE HCL 50 MG/1 ML VL IV ONE (11:00)
[2019-05-01 12:12] VITALS: BP 135/67
--- NOTE | 2019-05-01 13:45 | NUR ---
PATIENT REFUSING FLAGYL: PATIENT REFUSING IV FLAGYL AT THIS TIME. PATIENT DENIES ANY SOB OR SWEATING AT THIS TIME, EXPRESSING CONCERN WITH ANTIBIOTICS, AND "DOES NOT WANT TO BE HOOKED UP TO THOSE MEDICATIONS MA'AM, PLEASE." FLAGYL HELD AT THIS TIME. MD MONICA PENNY MADE AWARE.
[2019-05-01 16:16] VITALS: BP 138/87
[2019-05-01] MEDS: traMADol HCL 50 MG TAB PO SCH ×2 (16:59→21:35)
--- NOTE | 2019-05-01 19:21 | NUR ---
CARE ENDORSED TO ANGELITA ZHAO.
--- NOTE | 2019-05-01 20:20 | NUR ---
PAIN PATIENT REQUESTING TYLENOL FOR PAIN RATED 8/10 TO LOWER EXTREMITIES. PATIENT REFUSING MORPHINE AND NORCO AT THIS TIME. TRAMADOL NOT DUE AT THIS TIME.
[2019-05-01 21:30] VITALS: BP 110/75
[2019-05-02 05:00] VITALS: BP 136/85
--- NOTE | 2019-05-02 06:49 | NUR ---
PATIENT RESTING WITH NO S/S OF DISTRESS NOTED.
[2019-05-02 07:07] LABS: Potassium 3.6 mmol/L (3.5-5.1)
[2019-05-02 07:11] LABS: Albumin 2.9 g/dL (3.4-5.0); Calcium 9.1 mg/dL (8.5-10.1)
[2019-05-02 07:14] LABS: Bilirubin, Total 0.5 mg/dL (0.2-1.0)
--- NOTE | 2019-05-02 07:47 | NUR ---
OPENING SHIFT NOTE: PATIENT ASLEEP, EASILY AWOKEN. A/OX4. RESPIRATIONS EVEN AND UNLABORED. CALL LIGHT WITHIN REACH. UPDATED ON PLAN OF CARE, PATIENT VERBALIZED UNDERSTANDING. WILL CONTINUE TO MONITOR.
[2019-05-02] MEDS: metroNIDAZOLE 500MG/100ML 100 ML IV SCH (07:48)
[2019-05-02] MEDS: IPRATROPIUM BROM 0.5 MG/2.5ML INH SOL NEB SCH (08:45)
[2019-05-02] MEDS: LEVALBUTEROL HCL 1.25 MG/3 ML NEB NEB SCH (08:45)
[2019-05-02 09:05] VITALS: BP 150/98
[2019-05-02] MEDS: traMADol HCL 50 MG TAB PO SCH (09:59)
[2019-05-02] MEDS: FAMOTIDINE 20 MG TAB PO SCH (09:59)
[2019-05-02] MEDS: FOLIC ACID 1 MG TAB PO SCH (09:59)
[2019-05-02] MEDS: APIXABAN 5 MG TAB PO SCH (09:59)
[2019-05-02] MEDS: METOPROLOL TARTRATE 50 MG TAB PO SCH (10:00)
[2019-05-02 10:56] VITALS: BP 150/98
--- NOTE | 2019-05-02 11:48 | NUR ---
DISCHARGE: PATIENT GIVEN ALL EDUCATION MATERIALS, EDUCATED ON FOLLOW UP APPOINTMENT AND INSTRUCTIONS, PATIENT VERBALIZED UNDERSTANDING. IV'S DISCONTINUED, MANUAL PRESSURE APPLIED. TELE RETURNED TO CARDIO UNIT. PATIENT TAKEN TO PRIVATE AUTO WITH ALL BELONGINGS, WITHOUT INCIDENCE.
== END 2019-05-02 11:45 | disposition home or self-care (01) | DRG 444 ==
LOC: ER 17:54 → EDBD 17:54 → TELE 17:55 → TELE-CENTR 04-29 14:26
PROVIDERS: ADMIT Nurse Practitioner Acute Care; ATTEND Internal Medicine
PROC: CF2YYZZ Tomographic (Tomo) Nuclear Medicine Imaging of Hepatobiliary System and Pancreas using Other Radionuclide (ICD-10-PCS; principal; 2019-04-30)
DX: K80.10 Calculus of gallbladder with chronic cholecystitis without obstruction (principal); J18.9 Pneumonia, unspecified organism; N17.0 Acute kidney failure with tubular necrosis; I49.01 Ventricular fibrillation; I48.20 Chronic atrial fibrillation, unspecified; D61.818 Other pancytopenia; I42.2 Other hypertrophic cardiomyopathy; I13.0 Hypertensive heart and chronic kidney disease with heart failure and stage 1 through stage 4 chronic kidney disease, or unspecified chronic kidney disease; I42.0 Dilated cardiomyopathy; J44.0 Chronic obstructive pulmonary disease with (acute) lower respiratory infection; I12.9 Hypertensive chronic kidney disease with stage 1 through stage 4 chronic kidney disease, or unspecified chronic kidney disease; N18.3 Chronic kidney disease, stage 3 (moderate); E87.6 Hypokalemia; E78.5 Hyperlipidemia, unspecified; E66.9 Obesity, unspecified; E11.22 Type 2 diabetes mellitus with diabetic chronic kidney disease; F17.210 Nicotine dependence, cigarettes, uncomplicated; I25.10 Atherosclerotic heart disease of native coronary artery without angina pectoris; S33.5XXA Sprain of ligaments of lumbar spine, initial encounter; X58.XXXA Exposure to other specified factors, initial encounter; Y93.89 Activity, other specified; Y92.89 Other specified places as the place of occurrence of the external cause; Z88.1 Allergy status to other antibiotic agents; Z95.810 Presence of automatic (implantable) cardiac defibrillator; Y99.8 Other external cause status; Z79.51 Long term (current) use of inhaled steroids; Z79.899 Other long term (current) drug therapy; Z68.31 Body mass index [BMI] 31.0-31.9, adult
CPT/HCPCS: 36415; 71045; 76705; 78226; 80048; 80053; 81001; 82962; 83036; 84484; 85025; 85610; 85730; 93005; 93926; 94640; G0378; J1815; J1956; J3490

== ENCOUNTER → 2019-05-08 | Outpatient (CLI) | payer MEDICARE, OTHER ==
[~2019-05-08] MED LIST changes: +ENAL5TAB PO; -ENAL5TAB10 PO
== END | disposition home or self-care (01) ==
LOC: Rad HDHVI 08:58
PROVIDERS: ATTEND Internal Medicine Cardiovascular Disease
DX: M79.669 Pain in unspecified lower leg (principal); I77.1 Stricture of artery
CPT/HCPCS: 93925

== ENCOUNTER → 2019-08-20 | Outpatient (CLI) | payer MEDICARE, OTHER ==
[~2019-08-20] VITALS: Ht 182.9 cm; Wt 99.8 kg
[~2019-08-20] MED LIST changes: -ENAL5TAB PO; +ENAL5TAB10 PO
[2019-08-20 10:00] VITALS: BP 93/68
--- NOTE | 2019-08-20 10:00 | NUR ---
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 A/OX4, AMBULATORY.
--- NOTE | 2019-08-20 10:14 | NUR ---
EKG DONE BY ALEX TORRES SR 69 WITH MULTIPLE PVC, R BBB
[2019-08-20 10:25] VITALS: BP 104/67
--- NOTE | 2019-08-20 10:25 | NUR ---
Pre-Op Discharge Summary: See e-MAR for any medications given for this visit. Pre-op orders received and carried out per MD of EKG, LABS. Patient given a copy of EKG with instructions to go to [facility] FOR CXR AND out patient for further follow up care. NOTE EKG DONE BY ALEX TORRES
[2019-08-20 11:57] LABS: Basophils # (auto) 0 10 ^3/uL (0-0.2); Basophils % (auto) 0.3 % (0.0-2.0); Mean Corpuscular Hemoglobin 26.8 pg (28.0-32.0); Mean Corpuscular Hgb Conc. 32.4 g/dL (32.0-36.0); Monocytes # (auto) 0.4 10 ^3/uL (0-1.3); Neutrophils # (auto) 4.8 10 ^3/uL (1.6-8.6); White Blood Cell 7.7 10^3/uL (4.4-10.8)
[2019-08-20 11:59] LABS: Eosinophils # (auto) 0.4 10 ^3/uL (0-0.8); Eosinophils % (auto) 4.9 % (0.0-7.0); Hematocrit 41.1 % (41.0-53.0); Hemoglobin 13.3 g/dL (13.5-17.5); Lymphocytes # (auto) 2.1 10 ^3/uL (0.4-5.4); Lymphocytes % (auto) 27.8 % (10.0-50.0); Mean Corpuscular Volume 82.8 fL (80.0-100.0); Monocytes % (auto) 5.1 % (0.0-12.0); Neutrophils % (auto) 61.9 % (37.0-80.0); Nucleated Red Blood Cells % 0.3 %; Red Blood Cells 4.96 10^6/uL (4.5-5.90); Red Cell Distribution Width 16.4 % (11.8-14.3)
[2019-08-20 12:02] LABS: BUN/Creatinine Ratio 12.7; Calcium 8.7 mg/dL (8.5-10.1)
[2019-08-20 12:06] LABS: INR 0.96 (0.9-1.15); Partial Thromboplastin Time 24.5 sec (23.64-32.05)
[2019-08-20 12:40] LABS: Platelet Count (auto) 86 10^3/uL (140-450)
== END | disposition home or self-care (01) ==
LOC: Rad HDHVI 09:50
PROVIDERS: ATTEND Internal Medicine Cardiovascular Disease
DX: Z01.812 Encounter for preprocedural laboratory examination (principal); I10 Essential (primary) hypertension; D64.9 Anemia, unspecified; R79.1 Abnormal coagulation profile
CPT/HCPCS: 36415; 80048; 85025; 85610; 85730; 93005; G0463

== ENCOUNTER 2019-08-23 08:58 | Day surgery (SDC) | payer MEDICARE, OTHER ==
[~2019-08-23 08:58] MED LIST changes: +ENAL5TAB PO; -ENAL5TAB10 PO
[2019-08-23] MEDS ORDERED: fentaNYL CITRATE 100 MCG/2 ML VL ONE (10:56)
[2019-08-23] MEDS ORDERED: ANGIOMAX 250 MG VIAL IV ONE (10:56)
[2019-08-23] MEDS ORDERED: SODIUM CHL 0.9% 50 ML ONE (10:56)
[2019-08-23] MEDS ORDERED: MIDAZOLAM HCL 1MG/1ML-2 ML VIAL ONE (10:56)
[2019-08-23] MEDS ORDERED: IODIXANOL 320MG/ML 100ML BTL IV ONE (10:57)
[2019-08-23] MEDS ORDERED: LIDOCAINE 2%HCL (LOCAL ANESTH.) INJ 20ML MDV ONE (10:58)
[2019-08-23] MEDS ORDERED: NITROGLYCERIN 50MG/250ML 250 ML IV ONE (11:08)
[2019-08-23] MEDS ORDERED: HYDROcodone-ACET 5/325MG TAB PO PRN (12:30)
[2019-08-23] MEDS ORDERED: ACETAMINOPHEN 500 MG TAB PO PRN (12:30)
[2019-08-23] MEDS ORDERED: ONDANSETRON HCL 4 MG/2 ML VIAL IV PRN (12:30)
== END 2019-08-23 13:52 | disposition home or self-care (01) ==
LOC: CATH 08:58
PROVIDERS: ATTEND Internal Medicine Cardiovascular Disease
DX: I70.211 Atherosclerosis of native arteries of extremities with intermittent claudication, right leg (principal); E78.5 Hyperlipidemia, unspecified; I25.2 Old myocardial infarction; J44.9 Chronic obstructive pulmonary disease, unspecified; I11.0 Hypertensive heart disease with heart failure; I48.91 Unspecified atrial fibrillation; Z11.59 Encounter for screening for other viral diseases; Z87.891 Personal history of nicotine dependence; Z79.899 Other long term (current) drug therapy; Z88.1 Allergy status to other antibiotic agents
CPT/HCPCS: 36247; 75716; C1760; C1769; C1894; J0583; J1644; J2250; J3010; Q9967; U0003; 99152

== ENCOUNTER → 2020-01-07 | Outpatient (CLI) | payer MEDICARE, OTHER ==
[~2020-01-07] MED LIST changes: -ENAL5TAB PO; +ENAL5TAB10 PO
[2020-01-07 11:56] LABS: Basophils # (auto) 0 10 ^3/uL (0-0.2); Eosinophils # (auto) 0.2 10 ^3/uL (0-0.8); Hemoglobin 10.2 g/dL (13.5-17.5); Monocytes # (auto) 0.4 10 ^3/uL (0-1.3); Red Cell Distribution Width 19.4 % (11.8-14.3)
[2020-01-07 11:59] LABS: Basophils % (auto) 0.3 % (0.0-2.0); Eosinophils % (auto) 3.5 % (0.0-7.0); Mean Corpuscular Hemoglobin 21.9 pg (28.0-32.0); Mean Corpuscular Volume 73.2 fL (80.0-100.0); Monocytes % (auto) 5.6 % (0.0-12.0); Neutrophils # (auto) 3.9 10 ^3/uL (1.6-8.6); Neutrophils % (auto) 59.6 % (37.0-80.0); Red Blood Cells 4.65 10^6/uL (4.5-5.90); White Blood Cell 6.5 10^3/uL (4.4-10.8)
[2020-01-07 12:03] LABS: Urine Blood Negative /uL (Negative); Urine Specific Gravity 1.017 (1.001-1.035)
[2020-01-07 12:17] LABS: Platelet Count (auto) 20 10^3/uL (140-450)
[2020-01-07 13:58] LABS: Potassium 3.9 mmol/L (3.5-5.1)
[2020-01-07 13:59] LABS: Albumin 3.5 g/dL (3.4-5.0); BUN/Creatinine Ratio 12.8; Bilirubin, Total 0.5 mg/dL (0.2-1.0); Calcium 8.6 mg/dL (8.5-10.1); Total Protein 7.1 g/dL (6.4-8.2)
[2020-01-07 15:03] LABS: Free T4 (Free Thyroxine) 0.89 ng/dL (0.89-1.76); Prostate Specific Antigen 0.43 ng/mL (0.0-4.0)
== END | disposition home or self-care (01) ==
LOC: LAB 08:54
PROVIDERS: ATTEND Internal Medicine Cardiovascular Disease
DX: C61 Malignant neoplasm of prostate (principal); D51.3 Other dietary vitamin B12 deficiency anemia; D64.9 Anemia, unspecified; E11.9 Type 2 diabetes mellitus without complications; E55.9 Vitamin D deficiency, unspecified; I10 Essential (primary) hypertension; R00.2 Palpitations; R53.1 Weakness; R30.0 Dysuria
CPT/HCPCS: 36415; 80053; 80061; 81003; 82306; 82607; 83036; 84153; 84403; 84439; 84443; 85025

== ENCOUNTER → 2020-03-10 | Outpatient (CLI) | payer MEDICARE, OTHER ==
[~2020-03-10] MED LIST changes: +TEMA15CA2 PO; -TEMA15CA91 PO
[2020-03-10 12:00] LABS: Albumin 3.5 g/dL (3.4-5.0); BUN/Creatinine Ratio 9.6; Bilirubin, Total 0.5 mg/dL (0.2-1.0); Total Protein 7.4 g/dL (6.4-8.2)
== END | disposition home or self-care (01) ==
LOC: LAB 08:32
PROVIDERS: ATTEND Internal Medicine Cardiovascular Disease
DX: D64.9 Anemia, unspecified (principal); I10 Essential (primary) hypertension
CPT/HCPCS: 80053

== ENCOUNTER → 2020-03-11 | Outpatient (CLI) | payer MEDICARE, OTHER ==
[2020-03-11 11:59] LABS: INR 0.98 (0.9-1.15); Partial Thromboplastin Time 22.8 sec (23.0-31.2)
[2020-03-11 15:23] LABS: Basophils # (auto) 0 10 ^3/uL (0-0.2); Eosinophils # (auto) 0.2 10 ^3/uL (0-0.8); Lymphocytes # (auto) 1.8 10 ^3/uL (0.4-5.4); Nucleated Red Blood Cells % 0.1 %
[2020-03-11 15:25] LABS: Basophils % (auto) 0.8 % (0.0-2.0); Eosinophils % (auto) 3.1 % (0.0-7.0); Lymphocytes % (auto) 31.3 % (10.0-50.0); Mean Corpuscular Hemoglobin 21.1 pg (28.0-32.0); Mean Corpuscular Hgb Conc. 30.2 g/dL (32.0-36.0); Mean Corpuscular Volume 69.8 fL (80.0-100.0); Monocytes # (auto) 0.4 10 ^3/uL (0-1.3); Monocytes % (auto) 6.2 % (0.0-12.0); Neutrophils # (auto) 3.4 10 ^3/uL (1.6-8.6); Neutrophils % (auto) 58.6 % (37.0-80.0)
[2020-03-11 15:25] LABS: Urine Blood Negative /uL (Negative)
[2020-03-11 15:44] LABS: Hematocrit 32.3 % (41.0-53.0); Hemoglobin 9.7 g/dL (13.5-17.5); Platelet Count (auto) 122 10^3/uL (140-450); Red Cell Distribution Width 20.8 % (11.8-14.3); White Blood Cell 5.2 10^3/uL (4.4-10.8)
== END | disposition home or self-care (01) ==
LOC: LAB 10:46
PROVIDERS: ATTEND Internal Medicine Cardiovascular Disease
DX: D64.9 Anemia, unspecified (principal); H25.12 Age-related nuclear cataract, left eye; Z79.01 Long term (current) use of anticoagulants
CPT/HCPCS: 36415; 81003; 85025; 85610; 85730

== ENCOUNTER → 2020-05-02 | Outpatient (CLI) | payer MEDICARE, OTHER ==
[~2020-05-02] VITALS: Ht 30.5 cm; Wt 0.5 kg
[~2020-05-02] MED LIST changes: +MAGNESIUM CITRATE SOLUTION 300 ML BTL ONE; +MAGNESIUM CITRATE SOLUTION 300 ML BTL PO ONE; +PIPERACILLIN-TAZO 4.5GM 100 ML IV ONE; +SODIUM CHLORIDE 0.9% 500 ML IV ONE; +levoFLOXacin 500MG 100 ML IV ONE
[2020-05-02 12:36] VITALS: BP 125/72
[2020-05-02 13:50] VITALS: BP 90/63
[2020-05-02 14:00] VITALS: BP 111/58
[2020-05-02 15:40] LABS: Basophils # (auto) 0 10 ^3/uL (0-0.2); Eosinophils # (auto) 0.1 10 ^3/uL (0-0.8); Hemoglobin 8.6 g/dL (13.5-17.5); Lymphocytes # (auto) 0.7 10 ^3/uL (0.4-5.4); Monocytes # (auto) 0.2 10 ^3/uL (0-1.3); Neutrophils # (auto) 5.8 10 ^3/uL (1.6-8.6)
[2020-05-02 15:42] LABS: BUN/Creatinine Ratio 12.5; Basophils % (auto) 0.1 % (0.0-2.0); Calcium 8.6 mg/dL (8.5-10.1); Eosinophils % (auto) 0.9 % (0.0-7.0); Hematocrit 29.2 % (41.0-53.0); Lymphocytes % (auto) 9.9 % (10.0-50.0); Magnesium 2.6 mg/dL (1.6-2.6); Mean Corpuscular Hemoglobin 19.7 pg (28.0-32.0); Mean Corpuscular Hgb Conc. 29.5 g/dL (32.0-36.0); Mean Corpuscular Volume 66.8 fL (80.0-100.0); Monocytes % (auto) 3.5 % (0.0-12.0); Neutrophils % (auto) 85.6 % (37.0-80.0); Nucleated Red Blood Cells % 0.4 %; Potassium 3.9 mmol/L (3.5-5.1); Red Blood Cells 4.36 10^6/uL (4.5-5.90); White Blood Cell 6.7 10^3/uL (4.4-10.8)
[2020-05-02 15:44] LABS: Bilirubin, Total 3.7 mg/dL (0.2-1.0); Total Protein 7.2 g/dL (6.4-8.2)
[2020-05-02 15:47] LABS: Urine Blood Negative /uL (Negative)
[2020-05-02 15:53] LABS: Red Cell Distribution Width 22.2 % (11.8-14.3)
[2020-05-02 15:54] LABS: Platelet Count (auto) 18 10^3/uL (140-450)
== END | disposition home or self-care (01) ==
LOC: CHF HDHVI 13:02
PROVIDERS: ATTEND Internal Medicine Cardiovascular Disease
DX: I11.0 Hypertensive heart disease with heart failure (principal); I50.23 Acute on chronic systolic (congestive) heart failure; D64.9 Anemia, unspecified; N39.0 Urinary tract infection, site not specified; R94.4 Abnormal results of kidney function studies; Z79.01 Long term (current) use of anticoagulants; Z79.899 Other long term (current) drug therapy
CPT/HCPCS: 36415; 80053; 81003; 82306; 83735; 85025; 96361; 96365; 96366; G0463; J2543; J7040; J1956

== ENCOUNTER → 2020-05-06 | Outpatient (CLI) | payer MEDICARE, OTHER ==
[~2020-05-06] MED LIST changes: -MAGNESIUM CITRATE SOLUTION 300 ML BTL ONE; -MAGNESIUM CITRATE SOLUTION 300 ML BTL PO ONE; -PIPERACILLIN-TAZO 4.5GM 100 ML IV ONE; -SODIUM CHLORIDE 0.9% 500 ML IV ONE; -levoFLOXacin 500MG 100 ML IV ONE
== END | disposition home or self-care (01) ==
LOC: LAB 14:49
PROVIDERS: ATTEND Internal Medicine Cardiovascular Disease
DX: R94.4 Abnormal results of kidney function studies (principal)
CPT/HCPCS: 36415; 82565

== ENCOUNTER → 2020-05-07 | Outpatient (CLI) | payer MEDICARE, OTHER ==
[~2020-05-07] VITALS: Ht 30.5 cm; Wt 0.5 kg
[~2020-05-07] MED LIST changes: +IOPAMIDOL 76 % (ISOVUE-370) 100ML BTL IV ONE; +READI-CAT 2 (BARIUM SULF)(VANILLA SMOOTHIE) 450ML ONE; +SODIUM CHLORIDE 0.9% 250 ML IV ONE
[2020-05-07 09:54] VITALS: BP 110/78
[2020-05-07 10:59] VITALS: BP 118/66
== END | disposition home or self-care (01) ==
LOC: Rad HDHVI 09:29
PROVIDERS: ATTEND Internal Medicine Cardiovascular Disease
DX: K80.20 Calculus of gallbladder without cholecystitis without obstruction (principal); K76.0 Fatty (change of) liver, not elsewhere classified; K83.8 Other specified diseases of biliary tract; R16.1 Splenomegaly, not elsewhere classified; N21.0 Calculus in bladder
CPT/HCPCS: 74177; 96360; G0463; J7050; Q9967; 96367; 96376

== ENCOUNTER → 2020-05-14 | Outpatient (CLI) | payer MEDICARE, OTHER ==
[~2020-05-14] MED LIST changes: -IOPAMIDOL 76 % (ISOVUE-370) 100ML BTL IV ONE; -READI-CAT 2 (BARIUM SULF)(VANILLA SMOOTHIE) 450ML ONE; -SODIUM CHLORIDE 0.9% 250 ML IV ONE
[2020-05-14 11:48] LABS: Basophils # (auto) 0 10 ^3/uL (0-0.2); Eosinophils # (auto) 0.1 10 ^3/uL (0-0.8); Eosinophils % (auto) 2.1 % (0.0-7.0); Hemoglobin 8.4 g/dL (13.5-17.5); Mean Corpuscular Hemoglobin 19.9 pg (28.0-32.0); Mean Corpuscular Volume 68.2 fL (80.0-100.0); Monocytes # (auto) 0.3 10 ^3/uL (0-1.3)
[2020-05-14 11:51] LABS: Basophils % (auto) 0.7 % (0.0-2.0); Hematocrit 28.6 % (41.0-53.0); Lymphocytes % (auto) 29.6 % (10.0-50.0); Mean Corpuscular Hgb Conc. 29.2 g/dL (32.0-36.0); Monocytes % (auto) 5.1 % (0.0-12.0); Neutrophils # (auto) 4.1 10 ^3/uL (1.6-8.6); Neutrophils % (auto) 62.5 % (37.0-80.0); White Blood Cell 6.6 10^3/uL (4.4-10.8)
[2020-05-14 11:55] LABS: Potassium 4.1 mmol/L (3.5-5.1)
[2020-05-14 12:05] LABS: Red Cell Distribution Width 22.7 % (11.8-14.3)
[2020-05-14 12:07] LABS: Platelet Count (auto) 182 10^3/uL (140-450)
[2020-05-14 12:15] LABS: Albumin 3.1 g/dL (3.4-5.0); BUN/Creatinine Ratio 11.5; Bilirubin, Total 0.8 mg/dL (0.2-1.0); Calcium 8.5 mg/dL (8.5-10.1); Total Protein 6.9 g/dL (6.4-8.2)
== END | disposition home or self-care (01) ==
LOC: LAB 10:03
PROVIDERS: ATTEND Internal Medicine Cardiovascular Disease
DX: I10 Essential (primary) hypertension (principal); D64.9 Anemia, unspecified
CPT/HCPCS: 36415; 80053; 85025

== ENCOUNTER → 2020-06-18 | Outpatient (CLI) | payer MEDICARE, OTHER ==
[2020-06-18 12:31] LABS: Basophils # (auto) 0 10 ^3/uL (0-0.2); Basophils % (auto) 0.6 % (0.0-2.0); Eosinophils # (auto) 0.1 10 ^3/uL (0-0.8); Eosinophils % (auto) 2.3 % (0.0-7.0); Lymphocytes # (auto) 1.1 10 ^3/uL (0.4-5.4); Lymphocytes % (auto) 27.7 % (10.0-50.0); Mean Corpuscular Hemoglobin 23.5 pg (28.0-32.0); Mean Corpuscular Hgb Conc. 30.1 g/dL (32.0-36.0); Mean Corpuscular Volume 78.1 fL (80.0-100.0); Monocytes # (auto) 0.2 10 ^3/uL (0-1.3); Monocytes % (auto) 5.6 % (0.0-12.0); Neutrophils # (auto) 2.6 10 ^3/uL (1.6-8.6); Neutrophils % (auto) 63.8 % (37.0-80.0); Nucleated Red Blood Cells % 0.1 %
[2020-06-18 12:38] LABS: Red Blood Cells 5.36 10^6/uL (4.5-5.90); Red Cell Distribution Width 31.5 % (11.8-14.3); White Blood Cell 4.5 10^3/uL (4.4-10.8)
[2020-06-18 12:39] LABS: Hematocrit 41.8 % (41.0-53.0); Hemoglobin 12.7 g/dL (13.5-17.5)
[2020-06-18 13:22] LABS: Platelet Count (auto) 101 10^3/uL (140-450)
== END | disposition home or self-care (01) ==
LOC: LAB 09:58
PROVIDERS: ATTEND Internal Medicine Cardiovascular Disease
DX: D64.9 Anemia, unspecified (principal)
CPT/HCPCS: 36415; 85025; 85045

== ENCOUNTER → 2020-07-09 | Outpatient (CLI) | payer MEDICARE, OTHER ==
[2020-07-09 11:28] LABS: Urine Blood Negative /uL (Negative); Urine Specific Gravity 1.013 (1.001-1.035)
== END | disposition home or self-care (01) ==
LOC: CHF HDHVI 10:28
PROVIDERS: ATTEND Internal Medicine Cardiovascular Disease
DX: N39.0 Urinary tract infection, site not specified (principal)
CPT/HCPCS: 81003; G0463

== ENCOUNTER → 2020-07-22 | Outpatient (CLI) | payer MEDICARE, OTHER ==
[2020-07-22 15:29] LABS: Basophils # (auto) 0 10 ^3/uL (0-0.2); Eosinophils # (auto) 0.3 10 ^3/uL (0-0.8); Eosinophils % (auto) 3.8 % (0.0-7.0); Hemoglobin 16.6 g/dL (13.5-17.5); Mean Corpuscular Hgb Conc. 33.3 g/dL (32.0-36.0); Monocytes # (auto) 0.4 10 ^3/uL (0-1.3); Neutrophils # (auto) 3.8 10 ^3/uL (1.6-8.6)
[2020-07-22 15:31] LABS: Basophils % (auto) 0.6 % (0.0-2.0); Hematocrit 49.7 % (41.0-53.0); Lymphocytes # (auto) 2.4 10 ^3/uL (0.4-5.4); Lymphocytes % (auto) 34.2 % (10.0-50.0); Mean Corpuscular Hemoglobin 29.5 pg (28.0-32.0); Mean Corpuscular Volume 88.4 fL (80.0-100.0); Monocytes % (auto) 6.4 % (0.0-12.0); Nucleated Red Blood Cells % 1.3 %; Red Blood Cells 5.62 10^6/uL (4.5-5.90); White Blood Cell 6.9 10^3/uL (4.4-10.8)
[2020-07-22 15:43] LABS: Urine Blood Negative /uL (Negative); Urine Specific Gravity 1.028 (1.001-1.035)
[2020-07-22 15:48] LABS: Red Cell Distribution Width 22.5 % (11.8-14.3)
[2020-07-22 15:58] LABS: Albumin 3.8 g/dL (3.4-5.0); BUN/Creatinine Ratio 9.7; Calcium 8.7 mg/dL (8.5-10.1); Potassium 3.9 mmol/L (3.5-5.1)
[2020-07-22 16:01] LABS: Bilirubin, Total 0.5 mg/dL (0.2-1.0); Total Protein 7.3 g/dL (6.4-8.2)
[2020-07-22 16:16] LABS: INR 0.96 (0.9-1.15); Partial Thromboplastin Time 27.1 sec (23.0-31.2)
[2020-07-22 16:17] LABS: Platelet Count (auto) 123 10^3/uL (140-450)
== END | disposition home or self-care (01) ==
LOC: LAB 11:24
PROVIDERS: ATTEND Internal Medicine Cardiovascular Disease
DX: Z01.812 Encounter for preprocedural laboratory examination (principal); H25.11 Age-related nuclear cataract, right eye; D68.311 Acquired hemophilia; Z79.01 Long term (current) use of anticoagulants
CPT/HCPCS: 36415; 80053; 81003; 85025; 85610; 85730

== ENCOUNTER → 2021-01-15 | Outpatient (CLI) | payer MEDICARE, OTHER ==
[~2021-01-15] VITALS: Ht 185.4 cm; Wt 93.0 kg
[~2021-01-15] MED LIST changes: +ADENOSINE 78 MG in GIVE UN-DILUTED 0 ML IV ONE; +ADENOSINE 90 MG/30 ML INJ IV ONE
== END | disposition home or self-care (01) ==
LOC: Rad HDHVI 09:31
PROVIDERS: ATTEND Internal Medicine Cardiovascular Disease
DX: R00.2 Palpitations (principal); I10 Essential (primary) hypertension; E78.5 Hyperlipidemia, unspecified; R06.02 Shortness of breath; J44.9 Chronic obstructive pulmonary disease, unspecified; I49.5 Sick sinus syndrome; E11.9 Type 2 diabetes mellitus without complications; F17.210 Nicotine dependence, cigarettes, uncomplicated; Z95.0 Presence of cardiac pacemaker
CPT/HCPCS: 78452; 93005; 96374; 96375; A9500; J0153

== ENCOUNTER → 2021-08-07 | Outpatient (CLI) | payer MEDICARE, OTHER ==
[~2021-08-07] MED LIST changes: -ADENOSINE 78 MG in GIVE UN-DILUTED 0 ML IV ONE; -ADENOSINE 90 MG/30 ML INJ IV ONE; +IOHEXOL 350 MG/ML 100ML IJ ONE; +READI-CAT 2 (BARIUM SULF)(VANILLA SMOOTHIE) 450ML ONE
[2021-08-07 11:34] VITALS: BP 126/83
[2021-08-07 13:10] VITALS: BP 136/77
== END | disposition home or self-care (01) ==
LOC: Rad HDHVI 11:28
PROVIDERS: ATTEND Internal Medicine Cardiovascular Disease
DX: K80.20 Calculus of gallbladder without cholecystitis without obstruction (principal); N40.0 Benign prostatic hyperplasia without lower urinary tract symptoms; J98.11 Atelectasis; R63.4 Abnormal weight loss; R94.4 Abnormal results of kidney function studies
CPT/HCPCS: 36415; 74177; 82565; 84520; G0463; Q9967

== ENCOUNTER → 2021-08-12 | Outpatient (CLI) | payer MEDICARE, OTHER ==
[~2021-08-12] MED LIST changes: -IOHEXOL 350 MG/ML 100ML IJ ONE; -READI-CAT 2 (BARIUM SULF)(VANILLA SMOOTHIE) 450ML ONE
== END | disposition home or self-care (01) ==
LOC: Rad HDHVI 12:56
PROVIDERS: ATTEND Internal Medicine Cardiovascular Disease
DX: I34.0 Nonrheumatic mitral (valve) insufficiency (principal); R06.02 Shortness of breath; E78.5 Hyperlipidemia, unspecified; Z95.0 Presence of cardiac pacemaker
CPT/HCPCS: 93306

== ENCOUNTER → 2021-11-20 | Outpatient (CLI) | payer MEDICARE, OTHER ==
[~2021-11-20] MED LIST changes: +READI-CAT 2 (BARIUM SULF)(VANILLA SMOOTHIE) 450ML ONE
[2021-11-20 16:33] LABS: Urine Blood Negative /uL (Negative)
[2021-11-20 16:34] LABS: Albumin 3.6 g/dL (3.4-5.0); Potassium 4.2 mmol/L (3.5-5.1)
[2021-11-20 16:37] LABS: Total Protein 6.8 g/dL (6.4-8.2)
[2021-11-20 17:07] LABS: BUN/Creatinine Ratio 11.7
[2021-11-20 17:08] LABS: Bilirubin, Direct 0.2 mg/dL (0-0.2); Bilirubin, Total 0.9 mg/dL (0.2-1.0); Calcium 8.3 mg/dL (8.5-10.1)
[2021-11-20 17:57] LABS: Basophils # (auto) 0 10 ^3/uL (0-0.2); Basophils % (auto) 0.4 % (0.0-2.0); Eosinophils # (auto) 0.2 10 ^3/uL (0-0.8)
[2021-11-20 17:58] LABS: Eosinophils % (auto) 3.4 % (0.0-7.0); Hematocrit 47.5 % (41.0-53.0); Hemoglobin 15.5 g/dL (13.5-17.5); Lymphocytes # (auto) 1.9 10 ^3/uL (0.4-5.4); Lymphocytes % (auto) 30.9 % (10.0-50.0); Mean Corpuscular Hemoglobin 29.9 pg (28.0-32.0); Mean Corpuscular Hgb Conc. 32.7 g/dL (32.0-36.0); Mean Corpuscular Volume 91.6 fL (80.0-100.0); Monocytes # (auto) 0.3 10 ^3/uL (0-1.3); Monocytes % (auto) 5.6 % (0.0-12.0); Neutrophils # (auto) 3.7 10 ^3/uL (1.6-8.6); Neutrophils % (auto) 59.7 % (37.0-80.0); Nucleated Red Blood Cells % 0.1 %; Red Blood Cells 5.19 10^6/uL (4.5-5.90); Red Cell Distribution Width 15.3 % (11.8-14.3); White Blood Cell 6.2 10^3/uL (4.4-10.8)
== END | disposition home or self-care (01) ==
LOC: Rad HDHVI 11:34
PROVIDERS: ATTEND Internal Medicine Cardiovascular Disease
DX: K80.20 Calculus of gallbladder without cholecystitis without obstruction (principal); K56.41 Fecal impaction; I71.40 Abdominal aortic aneurysm, without rupture, unspecified; K46.9 Unspecified abdominal hernia without obstruction or gangrene; M47.819 Spondylosis without myelopathy or radiculopathy, site unspecified; C61 Malignant neoplasm of prostate; D51.3 Other dietary vitamin B12 deficiency anemia; D64.9 Anemia, unspecified; E11.9 Type 2 diabetes mellitus without complications; I10 Essential (primary) hypertension; E55.9 Vitamin D deficiency, unspecified; R63.4 Abnormal weight loss; R00.2 Palpitations; R30.0 Dysuria; R53.1 Weakness
CPT/HCPCS: 36415; 74176; 80048; 80061; 80076; 81003; 82306; 83036; 84153; 84403; 84443; 85025; 87086

== ENCOUNTER → 2022-10-06 | Outpatient (CLI) | payer MEDICARE ==
[~2022-10-06] MED LIST changes: -ENAL5TAB10 PO; +ENAL5TAB22 PO; +FOLI-119 PO; -FOLI1TAB6 PO; -READI-CAT 2 (BARIUM SULF)(VANILLA SMOOTHIE) 450ML ONE
[2022-10-06 11:46] LABS: Urine Blood Negative /uL (Negative); Urine Clarity Clear (Clear); Urine Color Yellow (Yellow); Urine Protein, UAD Negative (Negative); Urine Specific Gravity 1.022 (1.001-1.035); Urine Urobilinogen Normal (Negative); Urine pH 5.5 (5.0-8.0)
[2022-10-06 12:14] LABS: Chloride 108 mmol/L (98-107); Potassium 4.4 mmol/L (3.5-5.1); Sodium 142 mmol/L (136-145)
[2022-10-06 12:15] LABS: Anion Gap 9.6 (5-15); Calcium 9.2 mg/dL (8.5-10.1); Carbon Dioxide 24.4 mmol/L (20-30)
[2022-10-06 12:20] LABS: BUN/Creatinine Ratio 14.3 (10.0-20.0); Blood Urea Nitrogen 18 mg/dL (9-23); Glucose 93 mg/dL (74-106)
[2022-10-06 17:20] LABS: Prostate Specific Antigen 0.55 ng/mL (0.0-4.0)
[2022-10-06 17:25] LABS: Free T4 (Free Thyroxine) 0.9 ng/dL (0.89-1.76)
[2022-10-08 08:47] LABS: Basophils # (auto) 0 10 ^3/uL (0-0.2); Basophils % (auto) 0.5 % (0.0-2.0); Hemoglobin 15.7 g/dL (13.5-17.5)
[2022-10-08 08:49] LABS: Eosinophils # (auto) 0.4 10 ^3/uL (0-0.8); Eosinophils % (auto) 4.5 % (0.0-7.0); Hematocrit 45.8 % (41.0-53.0); Lymphocytes # (auto) 1.9 10 ^3/uL (0.4-5.4); Lymphocytes % (auto) 24.6 % (10.0-50.0); Mean Corpuscular Hemoglobin 31.1 pg (28.0-32.0); Mean Corpuscular Hgb Conc. 34.4 g/dL (32.0-36.0); Mean Corpuscular Volume 90.4 fL (80.0-100.0); Monocytes # (auto) 0.5 10 ^3/uL (0-1.3); Monocytes % (auto) 6.2 % (0.0-12.0); Neutrophils # (auto) 5.1 10 ^3/uL (1.6-8.6); Neutrophils % (auto) 64.2 % (37.0-80.0); Nucleated Red Blood Cells % 0.3 %; Red Blood Cells 5.06 10^6/uL (4.5-5.90); Red Cell Distribution Width 13.9 % (11.8-14.3); White Blood Cell 7.9 10^3/uL (4.4-10.8)
[2022-10-08 09:48] LABS: Cholesterol 193 mg/dL (< 200); Triglycerides 247 mg/dL (< 150)
[2022-10-08 09:49] LABS: LDL Cholesterol 123 mg/dL (< 100)
[2022-10-08 09:50] LABS: HDL Cholesterol 36 mg/dL (40-59)
== END | disposition home or self-care (01) ==
LOC: LAB 10:35
PROVIDERS: ATTEND Internal Medicine Cardiovascular Disease
DX: I10 Essential (primary) hypertension (principal); E11.65 Type 2 diabetes mellitus with hyperglycemia; E78.00 Pure hypercholesterolemia, unspecified; R30.0 Dysuria; C61 Malignant neoplasm of prostate
CPT/HCPCS: 36415; 80048; 80061; 81003; 82607; 83036; 84153; 84403; 84439

== ENCOUNTER → 2022-10-11 | Outpatient (CLI) | payer MEDICARE, OTHER | END | disposition home or self-care (01) | LOC: Rad HDHVI 13:59 | PROVIDERS: ATTEND Internal Medicine Cardiovascular Disease | DX: I34.0 Nonrheumatic mitral (valve) insufficiency (principal); I51.7 Cardiomegaly; R06.02 Shortness of breath; R00.2 Palpitations | CPT/HCPCS: 93306 ==

== ENCOUNTER 2023-01-01 09:42 | Inpatient (IN) | payer MEDICARE, MEDICAID ==
[~2023-01-01] VITALS: Ht 182.9 cm; Wt 88.8 kg
[2023-01-01] MEDS ORDERED: ASPirin 81 mg TAB PO ONE (10:15)
[2023-01-01] MEDS ORDERED: SODIUM CHLORIDE 0.9% 500 ML IV ONE ×2 (10:15→15:45)
[2023-01-01] MEDS ORDERED: MORPHINE SULFATE 4 MG/ML SYR/VIAL IV ONE ×2 (10:15→11:00)
[2023-01-01] MEDS ORDERED: ONDANSETRON HCL 4 MG/2 ML VIAL IM ONE (10:30)
[2023-01-01 10:45] VITALS: PULSE 67; RESP 12; O2SAT 100
[2023-01-01 11:05] LABS: Basophils # (auto) 0 10 ^3/uL (0-0.2); Basophils % (auto) 0.2 % (0.0-2.0); Eosinophils # (auto) 0.1 10 ^3/uL (0-0.8); Eosinophils % (auto) 1.8 % (0.0-7.0); Hemoglobin 18.7 g/dL (13.5-17.5); Lymphocytes # (auto) 2.6 10 ^3/uL (0.4-5.4); Lymphocytes % (auto) 32.3 % (10.0-50.0); Mean Corpuscular Hemoglobin 30.4 pg (28.0-32.0); Mean Corpuscular Volume 92.4 fL (80.0-100.0); Monocytes # (auto) 0.4 10 ^3/uL (0-1.3); Monocytes % (auto) 5.2 % (0.0-12.0); Neutrophils # (auto) 4.8 10 ^3/uL (1.6-8.6); Neutrophils % (auto) 60.5 % (37.0-80.0); Nucleated Red Blood Cells % 1.1 %; Red Blood Cells 6.15 10^6/uL (4.5-5.90); Red Cell Distribution Width 14.9 % (11.8-14.3); White Blood Cell 7.9 10^3/uL (4.4-10.8)
[2023-01-01 11:08] LABS: Hematocrit 56.8 % (41.0-53.0)
[2023-01-01 11:23] LABS: Alanine Aminotransferase 37 U/L (7-40); Albumin 4.7 g/dL (3.2-4.8); Alkaline Phosphatase 144 U/L (46-116); Anion Gap 11 (5-15); Aspartate Aminotransferase 95 U/L (13-40); BUN/Creatinine Ratio 10.9 (10.0-20.0); Bilirubin, Total 1.3 mg/dL (0.2-1.0); Blood Urea Nitrogen 14 mg/dL (9-23); Calcium 9.6 mg/dL (8.7-10.4); Carbon Dioxide 25 mmol/L (20-30); Chloride 105 mmol/L (98-107); Glucose 137 mg/dL (74-106); Potassium 3.7 mmol/L (3.5-5.1); Sodium 141 mmol/L (136-145); Total Protein 6.8 g/dL (5.7-8.2)
[2023-01-01 11:25] LABS: Platelet Estimate Decreased
[2023-01-01 11:26] LABS: Anisocytosis Slight
[2023-01-01 11:34] LABS: Urine Bacteria NONE SEEN /hpf (None Seen); Urine Blood Negative /uL (Negative); Urine Clarity Clear (Clear); Urine Color Yellow (Yellow); Urine Protein, UAD TRACE (Negative); Urine Specific Gravity 1.014 (1.001-1.035); Urine Urobilinogen Normal (Negative); Urine WBC <1 /hpf (0 - 3)
[2023-01-01] MEDS ORDERED: PROCHLORPERAZINE EDISYLATE 5 MG/ML 2ML VIAL IV ONE (14:00)
[2023-01-01] MEDS ORDERED: diphenhdrAMINE HCL 50 MG/1 ML VL IV ONE (14:00)
[2023-01-01] MEDS ORDERED: ONDANSETRON HCL 4 MG/2 ML VIAL IV PRN (15:30)
[2023-01-01] MEDS ORDERED: SODIUM CHLORIDE 0.9% 1,000 ML IV SCH (15:30)
[2023-01-01] MEDS ORDERED: ACETAMINOPHEN 325 MG TAB PO PRN (15:30)
[2023-01-01] MEDS ORDERED: MORPHINE SULFATE INJ 2 MG/ml SYRG IV PRN ×2 (15:30)
[2023-01-01] MEDS ORDERED: NITROGLYCERIN 0.4 MG SL TAB SL PRN (15:30)
[2023-01-01] MEDS ORDERED: KETOROLAC TROMETH 30 MG/ML 1ML VIAL IV ONE (15:30)
[2023-01-01] MEDS ORDERED: HYDROcodone-ACET 5/325MG TAB PO PRN (15:30)
[2023-01-01] MEDS ORDERED: ALBUTEROL MEDNEB 2.5 mg/3ml NEB NEB PRN (15:45)
[2023-01-01] MEDS ORDERED: D5W/SOD CHL 0.45% 1,000 ML IV SCH (17:30)
[2023-01-01] MEDS ORDERED: DEXTROSE (50%) 50ML SYRG IV PRN (17:30)
[2023-01-01 19:30] VITALS: PULSE 79; RESP 16; O2SAT 96
[2023-01-01] MEDS: ACCU-CHEK COMFORT CURVE STRIP VI SCH (21:54)
[2023-01-01] MEDS ORDERED: ATORVASTATIN 20 MG TAB PO SCH (22:00)
[2023-01-01] MEDS: TEMAZEPAM 15 MG CAP PO SCH (22:07)
[2023-01-01] MEDS: KETOROLAC TROMETH 30 MG/ML 1ML VIAL IV PRN (22:07)
[2023-01-01] MEDS: GABAPENTIN 300 MG CAP PO SCH (22:08)
[2023-01-01] MEDS: ENALAPRIL MALEATE 2.5 MG TAB PO SCH (22:09)
[2023-01-01] MEDS: InsuLIN REG 1unit/0.01ml Soln (100units/ml) SC SCH (22:30)
[2023-01-01] MEDS: METOPROLOL TARTRATE 50 MG TAB PO SCH (22:30)
[2023-01-01] MEDS ORDERED: NICOTINE 21MG/24 HR TOPICAL PATCH TD ONE (23:00)
[2023-01-02] VITALS (7 sets, daily range): BP systolic 114–128; BP diastolic 61–65; PULSE 57–79; RESP 15–18; TEMP 97.6–99.7; O2SAT 92–98
[2023-01-02 05:48] LABS: Alanine Aminotransferase 125 U/L (7-40); Alkaline Phosphatase 153 U/L (46-116); Anion Gap 7 (5-15); BUN/Creatinine Ratio 10.3 (10.0-20.0); Blood Urea Nitrogen 12 mg/dL (9-23); Calcium 8.6 mg/dL (8.7-10.4); Carbon Dioxide 25 mmol/L (20-30); Chloride 108 mmol/L (98-107); Glucose 125 mg/dL (74-106); Lipase 515 U/L (12-53); Potassium 3.8 mmol/L (3.5-5.1); Sodium 140 mmol/L (136-145)
[2023-01-02 05:49] LABS: Aspartate Aminotransferase 135 U/L (13-40); Basophils # (auto) 0 10 ^3/uL (0-0.2); Basophils % (auto) 0.1 % (0.0-2.0); Bilirubin, Total 2.5 mg/dL (0.2-1.0); Eosinophils # (auto) 0 10 ^3/uL (0-0.8); Mean Corpuscular Hgb Conc. 33.6 g/dL (32.0-36.0); Neutrophils # (auto) 8.2 10 ^3/uL (1.6-8.6)
[2023-01-02 05:50] LABS: Eosinophils % (auto) 0.3 % (0.0-7.0); Hematocrit 49.6 % (41.0-53.0); Hemoglobin 16.6 g/dL (13.5-17.5); Lymphocytes # (auto) 0.7 10 ^3/uL (0.4-5.4); Lymphocytes % (auto) 7.2 % (10.0-50.0); Mean Corpuscular Hemoglobin 31.2 pg (28.0-32.0); Mean Corpuscular Volume 92.9 fL (80.0-100.0); Monocytes # (auto) 0.3 10 ^3/uL (0-1.3); Monocytes % (auto) 3.5 % (0.0-12.0); Neutrophils % (auto) 88.9 % (37.0-80.0); Nucleated Red Blood Cells % 0.2 %; Red Blood Cells 5.33 10^6/uL (4.5-5.90); Red Cell Distribution Width 15.1 % (11.8-14.3); White Blood Cell 9.3 10^3/uL (4.4-10.8)
[2023-01-02] MEDS: PANTOPRAZOLE 40 MG TAB PO SCH (06:42)
[2023-01-02] MEDS: GABAPENTIN 300 MG CAP PO SCH ×3 (06:42→22:05)
[2023-01-02] MEDS: FOLIC ACID 1 MG TAB PO SCH (06:42)
[2023-01-02] MEDS: LUBIPROSTONE 24 MCG PO SCH (06:43)
[2023-01-02] MEDS: InsuLIN REG 1unit/0.01ml Soln (100units/ml) SC SCH ×4 (06:43→22:00)
[2023-01-02] MEDS: ACCU-CHEK COMFORT CURVE STRIP VI SCH ×4 (06:43→22:07)
[2023-01-02 07:54] LABS: Anisocytosis Slight; Platelet Estimate Decreased
[2023-01-02] MEDS: ENALAPRIL MALEATE 2.5 MG TAB PO SCH ×2 (10:00→22:06)
[2023-01-02] MEDS: ASPirin 81 mg TAB PO SCH (10:44)
[2023-01-02] MEDS: METOPROLOL TARTRATE 50 MG TAB PO SCH ×2 (10:45→22:07)
[2023-01-02] MEDS: NICOTINE 21MG/24 HR TOPICAL PATCH TD SCH (10:53)
[2023-01-02] MEDS ORDERED: cefTRIAXone 1GM/50ML D5W 50 ML IV SCH (16:00)
[2023-01-02] MEDS: D5W/SOD CHL 0.45% 1,000 ML IV SCH (16:24)
[2023-01-02] MEDS: KETOROLAC TROMETH 30 MG/ML 1ML VIAL IV PRN (17:04)
[2023-01-02 19:50] LABS: Amphetamine Screen, Urine Neg (NEGATIVE); Barbiturate Scree,Urine Neg (NEGATIVE); Benzodiazephine Screen, Urine Neg (NEGATIVE); Cannabinoid Screen, Urine Pos (NEGATIVE); Cocaine Screen, Urine Neg (NEGATIVE); Opiate Scree,Urine Neg (NEGATIVE); Phencyclidine Screen, Urine Neg (NEGATIVE)
[2023-01-02] MEDS: metroNIDAZOLE 500MG/100ML 100 ML IV SCH (22:05)
[2023-01-02] MEDS: TEMAZEPAM 15 MG CAP PO SCH (22:05)
[2023-01-02] MEDS: ATORVASTATIN 20 MG TAB PO SCH (22:05)
[2023-01-03] VITALS (10 sets, daily range): BP systolic 103–136; BP diastolic 61–77; PULSE 51–161; RESP 17–20; TEMP 97.3–98.6; O2SAT 92–97
[2023-01-03] MEDS: metroNIDAZOLE 500MG/100ML 100 ML IV SCH ×3 (06:12→22:42)
[2023-01-03] MEDS: GABAPENTIN 300 MG CAP PO SCH ×3 (06:14→22:42)
[2023-01-03] MEDS: FOLIC ACID 1 MG TAB PO SCH (06:14)
[2023-01-03] MEDS: PANTOPRAZOLE 40 MG TAB PO SCH (06:14)
[2023-01-03] MEDS: ACCU-CHEK COMFORT CURVE STRIP VI SCH ×4 (06:15→22:43)
[2023-01-03] MEDS: D5W/SOD CHL 0.45% 1,000 ML IV SCH (06:22)
[2023-01-03] MEDS: LUBIPROSTONE 24 MCG PO SCH (06:22)
[2023-01-03 06:32] LABS: Alanine Aminotransferase 68 U/L (7-40); Alkaline Phosphatase 118 U/L (46-116); Anion Gap 7 (5-15); BUN/Creatinine Ratio 12.3 (10.0-20.0); Blood Urea Nitrogen 15 mg/dL (9-23); Calcium 8.4 mg/dL (8.7-10.4); Carbon Dioxide 26 mmol/L (20-30); Chloride 106 mmol/L (98-107); Glucose 103 mg/dL (74-106); Potassium 3.5 mmol/L (3.5-5.1); Sodium 139 mmol/L (136-145)
[2023-01-03 06:33] LABS: Albumin 3.5 g/dL (3.2-4.8); Aspartate Aminotransferase 40 U/L (13-40); Bilirubin, Total 1.8 mg/dL (0.2-1.0); Total Protein 5.6 g/dL (5.7-8.2)
[2023-01-03] MEDS: InsuLIN REG 1unit/0.01ml Soln (100units/ml) SC SCH ×4 (07:00→22:00)
[2023-01-03] MEDS ORDERED: DIGOXIN (250MCG/ML) 2 ML AMPULE IV ONE (07:15)
[2023-01-03] MEDS: METOPROLOL TARTRATE 50 MG TAB PO SCH ×2 (07:54→22:43)
[2023-01-03 08:38] LABS: Basophils # (auto) 0 10 ^3/uL (0-0.2); Eosinophils # (auto) 0.1 10 ^3/uL (0-0.8); Hemoglobin 15.8 g/dL (13.5-17.5); Lymphocytes # (auto) 0.9 10 ^3/uL (0.4-5.4); Monocytes # (auto) 0.2 10 ^3/uL (0-1.3); Red Cell Distribution Width 15.1 % (11.8-14.3)
[2023-01-03 08:40] LABS: Basophils % (auto) 0.1 % (0.0-2.0); Eosinophils % (auto) 1.5 % (0.0-7.0); Hematocrit 47.9 % (41.0-53.0); Lymphocytes % (auto) 12.3 % (10.0-50.0); Mean Corpuscular Hemoglobin 30.4 pg (28.0-32.0); Mean Corpuscular Hgb Conc. 32.9 g/dL (32.0-36.0); Mean Corpuscular Volume 92.5 fL (80.0-100.0); Monocytes % (auto) 3.2 % (0.0-12.0); Neutrophils # (auto) 6.1 10 ^3/uL (1.6-8.6); Neutrophils % (auto) 82.9 % (37.0-80.0); Red Blood Cells 5.18 10^6/uL (4.5-5.90); White Blood Cell 7.4 10^3/uL (4.4-10.8)
[2023-01-03] MEDS ORDERED: ALBUTEROL MEDNEB 2.5 mg/3ml NEB NEB PRN (09:00)
[2023-01-03] MEDS: ASPirin 81 mg TAB PO SCH (09:18)
[2023-01-03] MEDS: ENALAPRIL MALEATE 2.5 MG TAB PO SCH ×2 (09:19→22:43)
[2023-01-03] MEDS: NICOTINE 21MG/24 HR TOPICAL PATCH TD SCH (09:29)
[2023-01-03 13:14] LABS: Platelet Estimate Decreased
[2023-01-03] MEDS ORDERED: METOPROLOL SUCCINATE XL 50 MG TAB PO ONE (17:00)
[2023-01-03] MEDS: KETOROLAC TROMETH 30 MG/ML 1ML VIAL IV PRN (17:25)
[2023-01-03] MEDS: ATORVASTATIN 20 MG TAB PO SCH (22:00)
[2023-01-03] MEDS: TEMAZEPAM 15 MG CAP PO SCH (22:42)
[2023-01-04] VITALS (8 sets, daily range): BP systolic 117–145; BP diastolic 62–82; PULSE 50–79; RESP 17–19; TEMP 98–98.6; O2SAT 92–97
[2023-01-04] MEDS: PANTOPRAZOLE 40 MG TAB PO SCH (06:22)
[2023-01-04] MEDS: FOLIC ACID 1 MG TAB PO SCH (06:22)
[2023-01-04] MEDS: ACCU-CHEK COMFORT CURVE STRIP VI SCH ×4 (06:22→21:23)
[2023-01-04] MEDS: GABAPENTIN 300 MG CAP PO SCH ×3 (06:22→21:11)
[2023-01-04] MEDS: metroNIDAZOLE 500MG/100ML 100 ML IV SCH ×3 (06:30→21:12)
[2023-01-04 06:33] LABS: Anion Gap 8 (5-15); Carbon Dioxide 23 mmol/L (20-30); Chloride 106 mmol/L (98-107); Potassium 3.7 mmol/L (3.5-5.1); Sodium 137 mmol/L (136-145)
[2023-01-04] MEDS: InsuLIN REG 1unit/0.01ml Soln (100units/ml) SC SCH ×4 (06:33→21:28)
[2023-01-04] MEDS: LUBIPROSTONE 24 MCG PO SCH (06:33)
[2023-01-04 06:34] LABS: Calcium 8.6 mg/dL (8.7-10.4)
[2023-01-04 06:39] LABS: BUN/Creatinine Ratio 13.3 (10.0-20.0); Blood Urea Nitrogen 14 mg/dL (9-23); Glucose 89 mg/dL (74-106); Lipase 108 U/L (12-53)
[2023-01-04] MEDS: ASPirin 81 mg TAB PO SCH (12:03)
[2023-01-04] MEDS: AMIODARONE HCL 200 MG TAB PO SCH ×2 (12:04→21:12)
[2023-01-04] MEDS: NICOTINE 21MG/24 HR TOPICAL PATCH TD SCH (12:04)
[2023-01-04] MEDS: METOPROLOL TARTRATE 50 MG TAB PO SCH ×2 (12:05→21:11)
[2023-01-04] MEDS: ENALAPRIL MALEATE 2.5 MG TAB PO SCH ×2 (12:05→23:00)
[2023-01-04 17:16] LABS: Basophils # (auto) 0 10 ^3/uL (0-0.2); Basophils % (auto) 0.2 % (0.0-2.0); Eosinophils # (auto) 0.1 10 ^3/uL (0-0.8); Eosinophils % (auto) 1.1 % (0.0-7.0); Lymphocytes # (auto) 0.9 10 ^3/uL (0.4-5.4); Lymphocytes % (auto) 13.4 % (10.0-50.0); Monocytes # (auto) 0.3 10 ^3/uL (0-1.3); Monocytes % (auto) 5.2 % (0.0-12.0); Neutrophils # (auto) 5.1 10 ^3/uL (1.6-8.6); Neutrophils % (auto) 80.1 % (37.0-80.0); Nucleated Red Blood Cells % 0.2 %; White Blood Cell 6.4 10^3/uL (4.4-10.8)
[2023-01-04 17:17] LABS: Hematocrit 47.1 % (41.0-53.0); Hemoglobin 15.6 g/dL (13.5-17.5); Mean Corpuscular Hemoglobin 30.5 pg (28.0-32.0); Mean Corpuscular Hgb Conc. 33.1 g/dL (32.0-36.0); Mean Corpuscular Volume 92.3 fL (80.0-100.0); Red Blood Cells 5.11 10^6/uL (4.5-5.90); Red Cell Distribution Width 14.6 % (11.8-14.3)
[2023-01-04] MEDS: ATORVASTATIN 20 MG TAB PO SCH (21:10)
[2023-01-04] MEDS: TEMAZEPAM 15 MG CAP PO SCH (21:11)
[2023-01-04 21:27] LABS: Anisocytosis Slight; Platelet Estimate Adequate
[2023-01-04 21:28] LABS: Large Platelets FEW
[2023-01-05] VITALS (8 sets, daily range): BP systolic 112–147; BP diastolic 57–68; PULSE 56–75; RESP 16–18; TEMP 98–98.5; O2SAT 92–96
[2023-01-05] MEDS: InsuLIN REG 1unit/0.01ml Soln (100units/ml) SC SCH ×2 (07:00→12:01)
[2023-01-05] MEDS: LUBIPROSTONE 24 MCG PO SCH (07:00)
[2023-01-05] MEDS: GABAPENTIN 300 MG CAP PO SCH ×2 (07:02→14:41)
[2023-01-05] MEDS: FOLIC ACID 1 MG TAB PO SCH (07:02)
[2023-01-05] MEDS: PANTOPRAZOLE 40 MG TAB PO SCH (07:02)
[2023-01-05] MEDS: ACCU-CHEK COMFORT CURVE STRIP VI SCH ×2 (07:03→11:49)
[2023-01-05] MEDS: metroNIDAZOLE 500MG/100ML 100 ML IV SCH ×2 (07:06→14:41)
[2023-01-05] MEDS: ASPirin 81 mg TAB PO SCH (09:49)
[2023-01-05] MEDS: AMIODARONE HCL 200 MG TAB PO SCH (09:50)
[2023-01-05] MEDS: ENALAPRIL MALEATE 2.5 MG TAB PO SCH (09:50)
[2023-01-05] MEDS: METOPROLOL TARTRATE 50 MG TAB PO SCH (09:51)
[2023-01-05] MEDS: NICOTINE 21MG/24 HR TOPICAL PATCH TD SCH (09:56)
[2023-01-05 10:30] LABS: Alanine Aminotransferase 32 U/L (7-40); Albumin 3.7 g/dL (3.2-4.8); Alkaline Phosphatase 109 U/L (46-116); Anion Gap 7 (5-15); Aspartate Aminotransferase 17 U/L (13-40); BUN/Creatinine Ratio 11.8 (10.0-20.0); Blood Urea Nitrogen 13 mg/dL (9-23); Carbon Dioxide 24 mmol/L (20-30); Chloride 107 mmol/L (98-107); Glucose 167 mg/dL (74-106); Potassium 3.6 mmol/L (3.5-5.1); Sodium 138 mmol/L (136-145)
[2023-01-05 10:31] LABS: Bilirubin, Total 0.8 mg/dL (0.2-1.0); Total Protein 5.8 g/dL (5.7-8.2)
== END 2023-01-05 17:15 | disposition home or self-care (01) | DRG 444 ==
LOC: ER 09:42 → EDBD 09:42 → TELE 15:29 → TELE-CENTR 01-02 15:02
PROVIDERS: ADMIT Nurse Practitioner Family; ATTEND Internal Medicine Cardiovascular Disease
DX: K81.0 Acute cholecystitis (principal); J96.01 Acute respiratory failure with hypoxia; K85.90 Acute pancreatitis without necrosis or infection, unspecified; I42.9 Cardiomyopathy, unspecified; J44.1 Chronic obstructive pulmonary disease with (acute) exacerbation; I50.20 Unspecified systolic (congestive) heart failure; E86.0 Dehydration; R74.01 Elevation of levels of liver transaminase levels; F10.10 Alcohol abuse, uncomplicated; F41.9 Anxiety disorder, unspecified; I11.0 Hypertensive heart disease with heart failure; I25.10 Atherosclerotic heart disease of native coronary artery without angina pectoris; I48.91 Unspecified atrial fibrillation; E78.5 Hyperlipidemia, unspecified; I25.2 Old myocardial infarction; Z82.49 Family history of ischemic heart disease and other diseases of the circulatory system; Z82.5 Family history of asthma and other chronic lower respiratory diseases; Z86.79 Personal history of other diseases of the circulatory system; Z95.810 Presence of automatic (implantable) cardiac defibrillator; Z99.81 Dependence on supplemental oxygen; Z88.8 Allergy status to other drugs, medicaments and biological substances
CPT/HCPCS: 36415; 71045; 74176; 74181; 76705; 80048; 80053; 80307; 81001; 82962; 83036; 83690; 83735; 83880; 84484; 85025; 93005; 96372; 96374; 96375; G0378; J1815; J1885; J3490

== ENCOUNTER → 2023-07-20 | Outpatient (CLI) | payer MEDICARE, OTHER ==
[~2023-07-20] MED LIST changes: -LUBI24CA6 PO; +LUBI24CA7 PO; +POTA-36 PO; -POTA10TA51 PO
== END | disposition home or self-care (01) ==
LOC: Rad HDHVI 15:18
PROVIDERS: ATTEND Internal Medicine Cardiovascular Disease
DX: I73.9 Peripheral vascular disease, unspecified (principal)
CPT/HCPCS: 93925

== ENCOUNTER → 2023-12-09 | Outpatient (CLI) | payer MEDICARE, OTHER | END | disposition home or self-care (01) | LOC: Rad HDHVI 08:57 | PROVIDERS: ATTEND Internal Medicine Cardiovascular Disease | DX: I11.0 Hypertensive heart disease with heart failure (principal); I50.43 Acute on chronic combined systolic (congestive) and diastolic (congestive) heart failure | CPT/HCPCS: 93306 ==

== ENCOUNTER → 2023-12-27 | Outpatient (CLI) | payer MEDICARE, OTHER ==
[2023-12-27 11:42] LABS: Basophils # (auto) 0 10 ^3/uL (0-0.2); Mean Corpuscular Hemoglobin 31.9 pg (28.0-32.0); Monocytes # (auto) 0.3 10 ^3/uL (0-1.3)
[2023-12-27 11:44] LABS: Urine Blood Negative /uL (Negative); Urine Clarity Clear (Clear); Urine Color Yellow (Yellow); Urine Protein, UAD TRACE (Negative); Urine Specific Gravity 1.018 (1.001-1.035); Urine Urobilinogen 2 mg/dL (Negative)
[2023-12-27 11:45] LABS: Basophils % (auto) 0.2 % (0.0-2.0); Eosinophils # (auto) 0.2 10 ^3/uL (0-0.8); Eosinophils % (auto) 2.8 % (0.0-7.0); Hematocrit 51.6 % (41.0-53.0); Hemoglobin 17.6 g/dL (13.5-17.5); Lymphocytes # (auto) 1.8 10 ^3/uL (0.4-5.4); Lymphocytes % (auto) 30.2 % (10.0-50.0); Mean Corpuscular Hgb Conc. 34.1 g/dL (32.0-36.0); Mean Corpuscular Volume 93.4 fL (80.0-100.0); Monocytes % (auto) 5.3 % (0.0-12.0); Neutrophils # (auto) 3.6 10 ^3/uL (1.6-8.6); Neutrophils % (auto) 61.5 % (37.0-80.0); Nucleated Red Blood Cells % 0.3 %; Red Blood Cells 5.52 10^6/uL (4.5-5.90); Red Cell Distribution Width 15.2 % (11.8-14.3); White Blood Cell 5.8 10^3/uL (4.4-10.8)
[2023-12-27 11:59] LABS: Prostate Specific Antigen 0.93 ng/mL (0.0-4.0)
[2023-12-27 12:01] LABS: Alanine Aminotransferase 29 U/L (7-40); Albumin 4.3 g/dL (3.2-4.8); Alkaline Phosphatase 80 U/L (46-116); Anion Gap 2 (5-15); Aspartate Aminotransferase 18 U/L (13-40); BUN/Creatinine Ratio 11.7 (10.0-20.0); Blood Urea Nitrogen 14 mg/dL (9-23); Calcium 9.5 mg/dL (8.7-10.4); Carbon Dioxide 31 mmol/L (20-31); Chloride 108 mmol/L (98-107); Glucose 109 mg/dL (74-106); LDL Cholesterol 145 mg/dL (< 100); Sodium 141 mmol/L (136-145); Triglycerides 131 mg/dL (< 150)
[2023-12-27 12:02] LABS: Bilirubin, Direct 0.2 mg/dL (<0.3); Bilirubin, Total 0.9 mg/dL (0.2-1.0); Cholesterol 220 mg/dL (< 200); HDL Cholesterol 48 mg/dL (40-59); Total Protein 6.6 g/dL (5.7-8.2)
[2023-12-27 12:03] LABS: Free T4 (Free Thyroxine) 1.35 ng/dL (0.89-1.76)
[2023-12-27 12:12] LABS: Platelet Count (auto) 144 10^3/uL (140-450); Platelet Estimate Adequate
== END | disposition home or self-care (01) ==
LOC: LAB 10:52
PROVIDERS: ATTEND Internal Medicine Cardiovascular Disease
DX: E11.9 Type 2 diabetes mellitus without complications (principal); E55.9 Vitamin D deficiency, unspecified; D51.3 Other dietary vitamin B12 deficiency anemia; Z79.899 Other long term (current) drug therapy
CPT/HCPCS: 36415; 80053; 80061; 80076; 81003; 83036; 84153; 84403; 84439; 84443; 85025

== ENCOUNTER → 2024-01-18 | Outpatient (CLI) | payer MEDICARE, OTHER ==
[~2024-01-18] VITALS: Ht 182.9 cm; Wt 81.6 kg
[~2024-01-18] MED LIST changes: +ADENOSINE 69 MG in GIVE UN-DILUTED 0 ML IV ONE; +ADENOSINE 90 MG/30 ML INJ IV ONE
== END | disposition home or self-care (01) ==
LOC: Rad HDHVI 08:07
PROVIDERS: ATTEND Internal Medicine Cardiovascular Disease
DX: I11.0 Hypertensive heart disease with heart failure (principal); I50.43 Acute on chronic combined systolic (congestive) and diastolic (congestive) heart failure; E78.00 Pure hypercholesterolemia, unspecified; E11.40 Type 2 diabetes mellitus with diabetic neuropathy, unspecified; E11.21 Type 2 diabetes mellitus with diabetic nephropathy; I42.9 Cardiomyopathy, unspecified; F17.210 Nicotine dependence, cigarettes, uncomplicated; Z95.810 Presence of automatic (implantable) cardiac defibrillator; Z79.899 Other long term (current) drug therapy
CPT/HCPCS: 78452; 93005; 96374; 96375; A9500; J0153

== ENCOUNTER 2025-01-29 10:15 | Outpatient (CLI) | payer MEDICARE, OTHER ==
[~2025-01-29 10:15] MED LIST changes: -ADENOSINE 69 MG in GIVE UN-DILUTED 0 ML IV ONE; -ADENOSINE 90 MG/30 ML INJ IV ONE
[2025-01-29 10:49] LABS: Urine Protein, UAD Negative (Negative)
[2025-01-29 11:04] LABS: Alanine Aminotransferase 29 U/L (7-40); Albumin 4.3 g/dL (3.2-4.8); Alkaline Phosphatase 103 U/L (46-116); Anion Gap 8 (5-15); BUN/Creatinine Ratio 6.5 (10.0-20.0); Bilirubin, Direct 0.2 mg/dL (<0.3); Bilirubin, Total 0.6 mg/dL (0.2-1.0); Calcium 9.5 mg/dL (8.7-10.4); Carbon Dioxide 30 mmol/L (20-31); Chloride 105 mmol/L (98-107); Cholesterol 161 mg/dL (< 200); Glucose 100 mg/dL (74-106); Potassium 4.1 mmol/L (3.5-5.1); Sodium 143 mmol/L (136-145); Total Protein 6.7 g/dL (5.7-8.2)
[2025-01-29 11:13] LABS: Blood Urea Nitrogen 8 mg/dL (9-23); HDL Cholesterol 32 mg/dL (40-59); Triglycerides 171 mg/dL (< 150)
[2025-01-30 12:34] LABS: Hematocrit 51.3 % (41.0-53.0); Hemoglobin 17.7 g/dL (13.5-17.5); Mean Corpuscular Hemoglobin 31.9 pg (28.0-32.0); Mean Corpuscular Volume 92.3 fL (80.0-100.0); Nucleated Red Blood Cells % 0.4 %
== END 2025-01-29 17:00 | disposition home or self-care (01) ==
LOC: LAB 10:15
PROVIDERS: ATTEND Internal Medicine Cardiovascular Disease
DX: C61 Malignant neoplasm of prostate (principal); I11.0 Hypertensive heart disease with heart failure; I50.9 Heart failure, unspecified; E11.9 Type 2 diabetes mellitus without complications; E55.9 Vitamin D deficiency, unspecified; D64.9 Anemia, unspecified; R00.2 Palpitations
CPT/HCPCS: 36415; 80048; 80061; 80076; 81003; 83036; 84153; 84403; 84443; 85025

== ENCOUNTER 2025-01-29 14:04 | Outpatient (CLI) | payer MEDICARE, OTHER | END 2025-01-29 17:00 | disposition home or self-care (01) | LOC: Rad HDHVI 14:04 | PROVIDERS: ATTEND Internal Medicine Cardiovascular Disease | DX: I08.0 Rheumatic disorders of both mitral and aortic valves (principal); I25.5 Ischemic cardiomyopathy; I51.7 Cardiomegaly | CPT/HCPCS: 93306 ==